=== PATIENT | female | born 1980 | race African-American/Black ===

== ENCOUNTER → 2017-08-11 | Outpatient (CLI) | payer OTHER ==
[2014-10-23 18:29] VITALS: BP 120/64
[~2017-08-11] MED LIST: IOHEXOL 240 MG/ML 50ML VIAL. ONE; IOHEXOL 300 MG/ML 75 ML VIAL. IV ONE
--- NOTE | 2017-08-11 09:44 | RAD ---
Examination: CT of the abdomen pelvis with IV contrast History: History of chronic right lower quadrant abdominal pain, nausea, vomiting Comparison: None available Technique: Axial CT images of the abdomen pelvis were performed with IV contrast. Coronal and sagittal reformats are performed PQRS Compliance Statement: One or more of the following individualized dose reduction techniques were utilized for this examination: 1. Automated exposure control 2. Adjustment of the mA and/or kV according to patient size 3. Use of iterative reconstruction technique Findings: The bibasal lungs are clear. No evidence of free air identified in the abdomen. Examination is somewhat limited due to delayed imaging after contrast administration. Grossly the visualized liver, spleen, adrenals grossly appears unremarkable. The gallbladder is mildly distended. The stomach is mildly distended. The visualized pancreas grossly appears unremarkable. The small bowel is nondilated. The appendix is normal. Feces and gas noted in the colon. There is a cystic structure identified in the left adnexa measuring 3.5 cm could be a left ovarian cyst or cystic lesion. Heterogeneous appearance of the uterus with the hypodensity identified abutting the endometrium measuring 3.5 cm.. The bilateral kidneys enhance symmetrically. The caliber of the aorta grossly appears unremarkable. Minimal degenerative changes lumbar spine. Impression: 1. No acute intra-abdominal findings. 2. Heterogeneous appearance of the uterus with hypodensity identified abutting the endometrium measuring 3.5 cm probably fibroids. Ultrasound pelvis can be considered for follow-up if this is a clinical concern. 3. A 3.5 cm cyst is identified in the left adnexa probably left ovarian cyst or cystic lesion. Ultrasound pelvis is recommended.
== END | disposition home or self-care (01) ==
LOC: CT 07:59
PROVIDERS: ATTEND Nurse Practitioner Family
DX: N83.8 Other noninflammatory disorders of ovary, fallopian tube and broad ligament (principal); K82.8 Other specified diseases of gallbladder; M47.896 Other spondylosis, lumbar region
CPT/HCPCS: 74177; Q9966; Q9967

== ENCOUNTER → 2017-09-09 | Outpatient (CLI) | payer OTHER ==
[2014-10-23 18:29] VITALS: BP 120/64
--- NOTE | 2017-09-09 16:33 | RAD ---
Pelvic ultrasound, 09/09/2017: History: Abdominal pain, abnormal CT study Transabdominal and transvaginal scans were obtained. The uterus is enlarged measuring 13 cm in length. It demonstrates a heterogeneous echo pattern. There is a 3.6 cm rounded, slightly hypoechoic, heterogeneous mass in the posterior aspect of the uterus. This distorts the central uterine echo complex, which measures approximately 1.1 cm in greatest AP dimension. This posterior uterine mass was present on the 02/05/2016 study at which time it measured approximately 5 cm. There is presumably represents a uterine fibroid. A 1.8 cm hypoechoic nodule is seen anteriorly in the uterus. Small nabothian cysts are noted in the cervical region. There is a 2.2 cm predominantly cystic lesion in the right ovary. There are low level internal echoes. This is probably a hemorrhagic cyst. The right ovary is otherwise unremarkable. The left ovary is within normal limits in size. The cystic structure seen in the left adnexa on the 08/11/2017 CT study is not visible sonographically. This may have been a functional cyst which has resolved. The adnexal regions are otherwise unremarkable. A small amount of free fluid is present in the pelvis. IMPRESSION: 1. Fibroid uterus with the largest fibroid (3.6 cm) in the posterior aspect of the uterus demonstrating an interval decrease in size since 02/05/2016. 2. Small right ovarian cyst containing debris, most likely a hemorrhagic cyst. 3. Small amount of free fluid in the pelvis.
--- NOTE | 2017-09-09 16:46 | RAD ---
Thyroid ultrasound, 09/09/2017: History: Hyperthyroidism The gland is generally enlarged with the right lobe measuring 6.4 x 2.4 x 2.4 cm while the left lobe measures 6.1 x 2.6 x 2.5 cm. The isthmus measures 0.8 cm AP dimension. The thyroid echo pattern is heterogeneous. The gland is hypervascular. There is a 6 mm smooth hyperechoic nodule present in the lower pole of the right lobe of the gland. It does not demonstrate suspicious features. There is a more complex 1.4 cm nodule present in the posterior aspect of the lower pole of the right lobe of the gland. It demonstrates hypoechoic and isoechoic components as well as a coarse calcification. No discrete nodule is seen in the left lobe of the gland. IMPRESSION: 1. 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 2. Two right thyroid nodules as noted above. The larger one is mildly suspicious due to the presence of internal calcification. Sonographic follow-up is suggested.
== END | disposition home or self-care (01) ==
LOC: US 13:48
DX: N83.202 Unspecified ovarian cyst, left side (principal); N83.201 Unspecified ovarian cyst, right side; E05.90 Thyrotoxicosis, unspecified without thyrotoxic crisis or storm; D25.9 Leiomyoma of uterus, unspecified
CPT/HCPCS: 76536; 76830; 76856

== ENCOUNTER → 2017-09-09 | Outpatient (CLI) | payer OTHER ==
[2014-10-23 18:29] VITALS: BP 120/64
--- NOTE | 2017-09-09 12:38 | RAD ---
2 views of the Chest 09/09/2017 2:00 AM Indication: SHORTNESS OF BREATH Comparison: Chest radiograph April 17, 2016 Findings: There is no focal consolidation or infiltrate identified. There is no effusion or pneumothorax. The cardiomediastinal silhouette and pulmonary vasculature are within normal limits. No osseous abnormality is identified. Impression: No evidence of acute cardiopulmonary process.
[2017-09-09 12:54] LABS: ALBUMIN 3.2 g/dL (3.4-5.0); ALBUMIN/GLOBULIN RATIO 0.9 (1.0-1.7); CREATININE 0.5 mg/dL (0.6-1.0); TOTAL BILIRUBIN 0.2 mg/dL (0.2-1.0); TOTAL PROTEIN 6.9 g/dL (6.4-8.2)
[2017-09-10 15:17] LABS: FREE T4 4.52 ng/dL (0.76-1.46)
[2017-09-10 15:48] LABS: THYROID STIM HORMONE (TSH) < 0.007 uIU/mL (0.358-3.740)
== END | disposition home or self-care (01) ==
LOC: PMG 11:42
PROVIDERS: ATTEND Nurse Practitioner Family
DX: R06.02 Shortness of breath (principal); R94.6 Abnormal results of thyroid function studies
CPT/HCPCS: 36415; 71046; 76536; 80053; 83880; 84439; 84443; 84481; 85379

== ENCOUNTER → 2017-09-10 | Outpatient (CLI) | payer OTHER ==
[2014-10-23 18:29] VITALS: BP 120/64
[2017-09-10] MEDS: IOHEXOL 300 MG/ML 75 ML VIAL. IV ONE (11:33)
--- NOTE | 2017-09-10 11:59 | RAD ---
INDICATION: Elevated d-dimer COMPARISON: Chest x-ray 1 day prior TECHNIQUE: Axial CT images obtained through the chest. Intravenous contrast was utilized. Three-dimensional images processed per protocol. FINDINGS: There are some limitation secondary to contrast bolus timing and patient motion. No evidence of pneumothorax. There are some minimal groundglass opacities within left greater than right lung. Portions of the thoracic aorta are obscured by motion. Ascending thoracic aorta measures approximately 38 mm and descending thoracic aorta approximately 2 cm. [place] shaped soft tissue density anterior mediastinum. Calcification at right lobe of thyroid. There is some irregularity of the inferior endplate of T5 with some sclerosis in the area. No embolus in main, right main or left main pulmonary artery. Peripheral evaluation is very limited secondary to patient motion and suboptimal contrast IMPRESSION: 1. No embolus in main pulmonary arteries. Peripheral evaluation is very limited secondary to motion. 2. Soft tissue density in the anterior mediastinum. Could be from causes such as residual thymus. 3. Mild groundglass opacities in left greater than right lung. Could be hypoventilatory changes or small airway inflammation. 4. Irregularity of the inferior endplate of T5. Could be from causes such at Schmorl's node unless the patient has a history of injury to this region. PQRS Compliance Statement: One or more of the following individualized dose reduction techniques were utilized for this examination: 1. Automated exposure control 2. Adjustment of the mA and/or kV according to patient size 3. Use of iterative reconstruction technique
== END | disposition home or self-care (01) ==
LOC: CT 11:07
DX: R79.1 Abnormal coagulation profile (principal); R91.8 Other nonspecific abnormal finding of lung field
CPT/HCPCS: 71275; Q9967

== ENCOUNTER → 2019-05-10 | Outpatient (CLI) | payer MEDICAID ==
[2014-10-23 18:29] VITALS: BP 120/64
--- NOTE | 2019-05-10 13:50 | RAD ---
DATE: 05/10/2019 EXAM: DIGITAL DIAGNOSTIC BILATERAL HISTORY: Swelling in left breast after tetanus shot. COMPARISON: 07/15/2016 This study was interpreted with the benefit of Computerized Aided Detection (CAD). Breast Density: HETERO The breast parenchyma is heterogenously dense, which could reduce sensitivity of mammography. Breast parenchyma level C. FINDINGS: 2-D CC and MLO views are provided. Right breast: There are no suspicious microcalcifications, masses or areas of architectural distortion. Left breast: There are no suspicious microcalcifications, masses or areas of architectural distortion. Bilateral mammograms compared to prior examinations and appears unchanged. IMPRESSION: Negative bilateral mammogram. Note that a normal mammogram does not preclude additional imaging if symptoms warrant. BI-RADS CATEGORY: 1 NEGATIVE RECOMMENDED FOLLOW-UP: 12M 12 MONTH FOLLOW-UP PQRS compliance statement: Patient information was entered into a reminder system with a target due date 05/10/2020 for the next mammogram. Mammography is a sensitive method for finding small breast cancers, but it does not detect them all and is not a substitute for careful clinical examination. A negative mammogram does not negate a clinically suspicious finding and should not result in delay in biopsying a clinically suspicious abnormality. "Our facility is accredited by the [employer] Mammography Program."
== END | disposition home or self-care (01) ==
LOC: MAMMO 12:44
PROVIDERS: ATTEND Physician Assistant
DX: R92.8 Other abnormal and inconclusive findings on diagnostic imaging of breast (principal); N63.0 Unspecified lump in unspecified breast
CPT/HCPCS: 77066

== ENCOUNTER 2019-08-19 12:51 | Emergency (ER) | payer MEDICAID ==
[~2019-08-19] VITALS: Ht 182.9 cm; Wt 111.6 kg
[2019-08-19 13:05] VITALS: BP 124/78
[2019-08-19] MEDS ORDERED: PROM118S9 PO (13:25)
[2019-08-19] MEDS ORDERED: FLUC150T PO (13:25)
[2019-08-19] MEDS ORDERED: AZIT250T6 PO (13:25)
--- NOTE | 2019-08-19 13:25 | PHYS DOC ---
Past History Past Medical History: Hypothyroid Past Surgical History: , Other Additional Past Surgical Histo: UMBILICAL HERNIA Smoking: Non-smoker Alcohol Use: Occasionally Drug Use: None Adult General Chief Complaint Chief Complaint: SORE THROAT HPI HPI Patient is a 89-year-old female presents with nasal congestion, sore throat, and cough. This is been going on for the past 3 days and getting worse over time. She had a fever of 101 last night. No significant improvement with NyQuil, last dose last night. No nausea or vomiting. No diarrhea. No dysuria or hematuria. Nothing really seems to make the symptoms better or worse. She has not been on any recent antibiotics. She just completed [employer] school and has been around numerous sick patients.[] Review of Systems Review of Systems Constitutional: See history of present illness[] Eyes: Denies change in visual acuity, redness, or eye pain [] HENT: See history of present illness[] Respiratory: Denies hemoptysis or shortness of breath [] Cardiovascular: No chest pain or palpitations[] GI: Denies abdominal pain, nausea, vomiting, bloody stools or diarrhea [] : Denies dysuria or hematuria [] Musculoskeletal: Denies back pain or joint pain [] Integument: Denies rash or skin lesions [] Neurologic: Denies headache, focal weakness or sensory changes [] Endocrine: Denies polyuria or polydipsia [] All other systems were reviewed and found to be within normal limits, except as documented in this note. Allergies Allergies Allergies Coded Allergies Type Severity Reaction Last Updated Verified Penicillins Allergy Unknown 08/11/17 Yes morphine Allergy Unknown 08/11/17 Yes Physical Exam Physical Exam Constitutional: Well developed, well nourished, no acute distress, non-toxic appearance. [] HENT: Normocephalic, atraumatic, bilateral external ears normal, oropharynx moist, no oral exudates, nose with mild clear rhinorrhea. Posterior pharyngeal streaking is present. [] Eyes: PERRLA, EOMI, conjunctiva normal, no discharge. [] Neck: Normal range of motion, no tenderness, supple, no stridor. [] Cardiovascular:Heart rate regular rhythm, no murmur [] Lungs & Thorax: Bilateral breath sounds clear to auscultation, no increased work of breathing [] Abdomen: Bowel sounds normal, soft, no tenderness, no masses, no pulsatile masses. [] Skin: Warm, dry, no erythema, no rash. [] Back: No tenderness, no CVA tenderness. [] Extremities: No tenderness, no cyanosis, no clubbing, ROM intact, no edema. [] Neurologic: Alert and oriented X 3, normal motor function, normal sensory function, no focal deficits noted. [] Psychologic: Affect normal, judgement normal, mood normal. [] Current Patient Data Vital Signs Vital Signs Date Time Temp Pulse Resp B/P (MAP) Pulse Ox O2 Delivery O2 Flow Rate FiO2 08/19/19 13:05 98.3 92 20 99 Room Air EKG EKG [] Radiology/Procedures Radiology/Procedures [] Course & Med Decision Making Course & Med Decision Making Pertinent Labs and Imaging studies reviewed. (See chart for details) ED course: Patient arrived, was placed in bed, and tolerated exam well. Discussed options with patient. Findings and plan were discussed with patient. She was discharged in improved condition. All questions were answered. Medical decision making: Patient appears to have an upper respiratory infection. We'll start with symptomatic treatment. If this is not improving in 2 days she will have perception for antibiotics, that we'll cover both throat as well as lungs given her penicillin allergy. She also notes that she does get yeast infections when on antibiotics. Writing for the when necessary Diflucan. No evidence of sepsis, no airway compromise. No hypoxia.[] Dragon Disclaimer Dragon Disclaimer This electronic medical record was generated, in whole or in part, using a voice recognition dictation system. Departure Departure: Impression: Primary Impression: Upper respiratory infection Disposition: 01 HOME, SELF-CARE Condition: IMPROVED Referrals: NICO GARCIA (PCP) Follow-up in 2 days Patient Instructions: Upper Respiratory Infection, Adult Additional Instructions: Drink plenty of fluids. Follow-up with your regular doctor in 2 days. Use the promethazine DM to help with cough and congestion. If no improvement in 2 days with that then take the azithromycin as prescribed. Use the Diflucan if necessary. Return to the ER if difficulty breathing or any other concerns. Scripts Fluconazole (DIFLUCAN) 150 Mg Tablet 1 TAB PO ONCE for candidiasis, #1 TAB Prov: SHANITA MULLEN DO 08/19/19 Azithromycin (AZITHROMYCIN TABLET) 250 Mg Tablet 1 PKG PO UD for bronchitis for 5 Days, #6 TAB 0 Refills 2 the first day followed by 1 for days 2-5 Prov: SHANITA MULLEN DO 08/19/19 D-Methorphan Hb/Prometh Hcl (PROMETHAZINE-DM SYRUP) 118 Ml Syrup 5 ML PO PRN Q4HRS for CONGESTION, #120 ML Prov: SHANITA MULLEN DO 08/19/19 Problem Qualifiers Primary Impression: Upper respiratory infection URI type: unspecified URI Qualified Codes: J06.9 - Acute upper respiratory infection, unspecified SHANITA MULLEN DO Aug 19, 2019 13:25
== END 2019-08-19 13:30 | disposition home or self-care (01) ==
LOC: ER 12:51
DX: J06.9 Acute upper respiratory infection, unspecified (principal); E03.9 Hypothyroidism, unspecified; Z88.0 Allergy status to penicillin; Z88.5 Allergy status to narcotic agent
CPT/HCPCS: 99283

== ENCOUNTER → 2019-10-02 | Outpatient (CLI) | payer MEDICAID ==
[~2019-10-02] MED LIST changes: +AZIT250T6 PO; +FLUC150T PO; -IOHEXOL 240 MG/ML 50ML VIAL. ONE; -IOHEXOL 300 MG/ML 75 ML VIAL. IV ONE; +PROM118S9 PO
--- NOTE | 2019-10-02 09:09 | RAD ---
EXAM: Pelvis and left hip, 3 views. HISTORY: Pain. Popping. COMPARISON: None. FINDINGS: A frontal view the pelvis and frontal and frog-leg views of the left hip are obtained. There is no fracture, dislocation or subluxation. IMPRESSION: No acute osseous finding. Electronically signed by: Trupti Garcia MD (10/02/2019 9:06 AM) [facility] [place]
== END | disposition home or self-care (01) ==
LOC: PMG 08:39
PROVIDERS: ATTEND Physician Assistant Medical
DX: M25.552 Pain in left hip (principal)
CPT/HCPCS: 73502

== ENCOUNTER → 2020-06-28 | Outpatient (CLI) | payer MEDICAID ==
[~2020-06-28] MED LIST changes: +PROM118S10 PO; -PROM118S9 PO
--- NOTE | 2020-07-01 10:02 | RAD ---
BILATERAL SCREENING MAMMOGRAM History: Routine screening. Comparison: 07/15/2016 and 05/10/2019. Technique: Routine bilateral digital mammogram views were obtained. Findings: Breast Tissue Density C : The breasts are heterogeneously dense, which may obscure small masses. There are no dominant masses, suspicious microcalcifications, or architectural distortion. IMPRESSION: No mammographic evidence of malignancy. Recommend routine screening. BI-RADS category 1: Negative. The images were reviewed with computer aided detection. Patient information is entered into the reminder system with a target due date for the next screening mammogram. Mammography is the most sensitive method for finding small breast cancers, but it does not detect them all and is not a substitute for careful clinical examination. A negative mammogram does not negate a clinically suspicious finding and should not result in delay in biopsying a clinically suspicious abnormality. "Our facility is accredited by the [employer] Mammography Program." Electronically signed by: Roberto Carlos Kebede MD (07/01/2020 9:59 AM) [id number]
== END ==
LOC: MAMMO 14:46
PROVIDERS: ATTEND Family Medicine
DX: Z12.31 Encounter for screening mammogram for malignant neoplasm of breast (principal)
CPT/HCPCS: 77067

== ENCOUNTER 2020-11-06 19:01 | Emergency (ER) | payer MEDICAID, OTHER ==
[~2020-11-06] VITALS: Ht 182.9 cm; Wt 100.0 kg
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
[2020-11-06] MEDS ORDERED: IBUPROFEN 600 MG TABLET. PO ONE (19:30)
[2020-11-06] MEDS ORDERED: CYCL-331 PO (19:56)
[2020-11-06] MEDS ORDERED: IBUP600T16 PO (19:56)
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
== END 2020-11-06 20:10 | disposition home or self-care (01) ==
LOC: ER 19:01
DX: S16.1XXA Strain of muscle, fascia and tendon at neck level, initial encounter (principal); S29.012A Strain of muscle and tendon of back wall of thorax, initial encounter; E03.9 Hypothyroidism, unspecified; Z98.890 Other specified postprocedural states; V98.8XXA Other specified transport accidents, initial encounter; Y93.89 Activity, other specified; Y92.413 State road as the place of occurrence of the external cause; Y99.8 Other external cause status
CPT/HCPCS: 72125; 72128; 99285

== ENCOUNTER → 2021-02-28 | Outpatient (CLI) | payer MEDICAID ==
[2020-11-06 19:14] VITALS: BP 148/58
[~2021-02-28] MED LIST changes: +CYCL-331 PO; +IBUP600T16 PO
--- NOTE | 2021-02-28 14:52 | RAD ---
EXAM: XR LUMBAR SPINE 2-3V 02/28/2021 1:17 PM CLINICAL INDICATION: Back pain since November, COMPARISON: None TECHNIQUE: 3 views of the lumbar spine FINDINGS: There 5 nonrib-bearing lumbar vertebral bodies. No acute fracture. Alignment is normal. No significant disc space narrowing. There are tiny anterior osteophytes in the upper lumbar spine. The facet joints are normal. IMPRESSION: No acute osseous abnormality. Minimal degenerative changes. Electronically signed by: Yana Barba MD (02/28/2021 2:50 PM) [id number]
== END ==
LOC: RAD 13:01
PROVIDERS: ATTEND Family Medicine
DX: M47.817 Spondylosis without myelopathy or radiculopathy, lumbosacral region (principal); M25.78 Osteophyte, vertebrae
CPT/HCPCS: 72100

== ENCOUNTER 2021-05-17 10:21 | Emergency (ER) | payer MEDICAID ==
[~2021-05-17] VITALS: Ht 182.9 cm; Wt 100.0 kg
[2021-05-17 10:32] VITALS: BP 120/71
[2021-05-17 11:00] LABS: BASO # 0.1 x10^3/uL (0.0-0.2); BASO % 3 % (0-3); EOS % 1 % (0-3); HEMOGLOBIN 10.2 g/dL (12.0-15.5); LYMPH # 1.2 x10^3/uL (1.0-4.8); LYMPH % 24 % (24-48); MEAN CORPUSCULAR HEMOGLOBIN 28 pg (25-35); MEAN CORPUSCULAR HGB CONC 33 g/dL (31-37); MEAN CORPUSCULAR VOLUME 87 fL (79-100); MONO # 0.5 x10^3/uL (0.0-1.1); MONO % 9 % (0-9); NEUT # 3.2 x10^3uL (1.8-7.7); NEUT % 64 % (31-73); PLATELET COUNT 249 x10^3/uL (140-400); RED BLOOD COUNT 3.58 x10^6/uL (3.50-5.40); RED CELL DISTRIBUTION WIDTH 18.8 % (11.5-14.5)
[2021-05-17] MEDS ORDERED: IV NORMAL SALINE 1,000ML 1,000 ML IV SCH (11:00)
[2021-05-17 11:03] LABS: CALCIUM 8.1 mg/dL (8.5-10.1); CREATININE 0.8 mg/dL (0.6-1.0); GFR 95.6; POTASSIUM 3.6 mmol/L (3.5-5.1)
[2021-05-17 11:15] LABS: ALBUMIN 3.8 g/dL (3.4-5.0); ALBUMIN/GLOBULIN RATIO 1.2 (1.0-1.7); TOTAL BILIRUBIN 0.6 mg/dL (0.2-1.0)
--- NOTE | 2021-05-17 11:35 | EKG ---
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
--- NOTE | 2021-05-17 12:32 | PHYS DOC ---
Past History Past Medical History: Hypothyroid Additional Past Medical Histor: brain aneursym Past Surgical History: , Other Additional Past Surgical Histo: UMBILICAL HERNIA Smoking: Non-smoker Alcohol Use: Occasionally Drug Use: None General Adult EDM: Chief Complaint: CHEST PAIN HPI: HPI: Patient is a 41-year-old female presents with chest pain. Patient states that pain started about 10 AM this morning after leaving her PCP. "My doctor told me this morning that I had an aneurysm and I think that is causing me to have chest pressure". "I feel like I might be having an anxiety attack". Patient denies radiation of pain. Denies nausea/vomiting., Shortness of breath. Patient denies taking anything prior to arrival. History of hypothyroid. Review of Systems: Review of Systems: Constitutional: Denies fever or chills Eyes: Denies change in visual acuity HENT: Denies nasal congestion or sore throat Respiratory: Denies cough or shortness of breath Cardiovascular: Reports chest pressure GI: Denies abdominal pain, nausea, vomiting, bloody stools or diarrhea : Denies dysuria Musculoskeletal: Denies back pain or joint pain Integument: Denies rash Neurologic: Denies headache, focal weakness or sensory changes Endocrine: Denies polyuria or polydipsia Lymphatic: Denies swollen glands Psychiatric: Denies depression or anxiety Current Medications: Current Meds: Current Medications Medications (Trade) Dose Ordered Sig/Yoav Start Time Stop Time Status Last Admin Dose Admin Lorazepam (Ativan Inj) 1 mg 1X ONCE 05/17/21 12:15 05/17/21 12:16 DC Sodium Chloride 1,000 ml @ 1,000 mls/hr Q1H 05/17/21 11:00 05/17/21 11:59 DC Allergies: Allergies: Allergies Coded Allergies Type Severity Reaction Last Updated Verified Penicillins Allergy Unknown 08/11/17 Yes morphine Allergy Unknown 08/11/17 Yes Physical Exam: PE: Constitutional: Well developed, well nourished, no acute distress, non-toxic appearance. [] HENT: Normocephalic, atraumatic, bilateral external ears normal, oropharynx moist, no oral exudates, nose normal. [] Eyes: PERRLA, EOMI, conjunctiva normal, no discharge. [] Neck: Normal range of motion, no tenderness, supple, no stridor. [] Cardiovascular:Heart rate regular rhythm, no murmur [] Lungs & Thorax: Bilateral breath sounds clear to auscultation [] Abdomen: Bowel sounds normal, soft, no tenderness, no masses, no pulsatile masses. [] Skin: Warm, dry, no erythema, no rash. [] Back: No tenderness, no CVA tenderness. [] Extremities: No tenderness, no cyanosis, no clubbing, ROM intact, no edema. [] Neurologic: Alert and oriented X 3, normal motor function, normal sensory function, no focal deficits noted. [] Psychologic: Affect normal, judgement normal, mood normal. [] Current Patient Data: Labs: Laboratory Tests Test 05/17/21 10:43 05/17/21 11:58 White Blood Count 5.0 x10^3/uL (4.0-11.0) Red Blood Count 3.58 x10^6/uL (3.50-5.40) Hemoglobin 10.2 g/dL (12.0-15.5) L Hematocrit 31.0 % (36.0-47.0) L Mean Corpuscular Volume 87 fL (79-100) Mean Corpuscular Hemoglobin 28 pg (25-35) Mean Corpuscular Hemoglobin Concent 33 g/dL (31-37) Red Cell Distribution Width 18.8 % (11.5-14.5) H Platelet Count 249 x10^3/uL (140-400) Neutrophils (%) (Auto) 64 % (31-73) Lymphocytes (%) (Auto) 24 % (24-48) Monocytes (%) (Auto) 9 % (0-9) Eosinophils (%) (Auto) 1 % (0-3) Basophils (%) (Auto) 3 % (0-3) Neutrophils # (Auto) 3.2 x10^3uL (1.8-7.7) Lymphocytes # (Auto) 1.2 x10^3/uL (1.0-4.8) Monocytes # (Auto) 0.5 x10^3/uL (0.0-1.1) Eosinophils # (Auto) 0.0 x10^3/uL (0.0-0.7) Basophils # (Auto) 0.1 x10^3/uL (0.0-0.2) Sodium Level 136 mmol/L (136-145) Potassium Level 3.6 mmol/L (3.5-5.1) Chloride Level 99 mmol/L (98-107) Carbon Dioxide Level 24 mmol/L (21-32) Anion Gap 13 (6-14) Blood Urea Nitrogen 10 mg/dL (7-20) Creatinine 0.8 mg/dL (0.6-1.0) Estimated GFR (Cockcroft-Gault) 95.6 BUN/Creatinine Ratio 13 (6-20) Glucose Level 87 mg/dL (70-99) Calcium Level 8.1 mg/dL (8.5-10.1) L Total Bilirubin 0.6 mg/dL (0.2-1.0) Aspartate Amino Transferase (AST) 31 U/L (15-37) Alanine Aminotransferase (ALT) 23 U/L (14-59) Alkaline Phosphatase 65 U/L (46-116) Troponin I Quantitative < 0.017 ng/mL (0-0.055) CQ-Kcj-X-Type Natriuretic Peptide 123 pg/mL (0-124) Total Protein 7.0 g/dL (6.4-8.2) Albumin 3.8 g/dL (3.4-5.0) Albumin/Globulin Ratio 1.2 (1.0-1.7) POC Urine HCG, Qualitative hcg negative (Negative) Vital Signs: Vital Signs Date Time Temp Pulse Resp B/P (MAP) Pulse Ox O2 Delivery O2 Flow Rate FiO2 05/17/21 10:32 71 20 120/71 (87) 100 EKG: EKG: Sinus rhythm. Heart rate [address] Segura. [] Radiology/Procedures: Radiology/Procedures: []XR CHEST 1V CLINICAL INDICATIONS: Chest pain: COMPARISON: September 09, 2017. Findings: No acute lung infiltrate or pleural effusion or pulmonary edema or lung mass or pneumothorax is seen. The heart size, pulmonary vasculature, mediastinum and both filiberto are unremarkable. IMPRESSION: No acute radiographic abnormality is seen. Electronically signed by: Wilfrido Wei MD (05/17/2021 12:34 PM) [id number] Heart Score: C/O Chest Pain: Yes HEART Score for Chest Pain: HEART Score for Chest Pain Response (Comments) Value History Slighlty/Non-Suspicious 0 ECG Normal 0 Age < 45 0 Risk Factors No Risk Factors 0 Troponin < Normal Limit 0 Total 0 Risk Factors: Risk Factors: DM, Current or recent (<one month) smoker, HTN, HLP, family history of CAD, obesity. Risk Scores: Score 0 - 3: 2.5% MACE over next 6 weeks - Discharge Home Score 4 - 6: 20.3% MACE over next 6 weeks - Admit for Clinical Observation Score 7 - 10: 72.7% MACE over next 6 weeks - Early Invasive Strategies Course & Med Decision Making: Course & Med Decision Making Pertinent Labs and Imaging studies reviewed. (See chart for details) [] 41-year-old female presents with chest pressure that started at 10 AM this morning. Patient states that she was told she had a brain aneurysm and immediately started having pressure in her chest. Patient most likely is experiencing anxiety from recent diagnosis. Offered to give patient 1 mg of Ativan to help with anxiety, but patient declined. Patient is also refusing fluids. Chest x-ray is unremarkable. All labs unremarkable. Troponin is negative. Dis cussed results with patient. Explained patient that she would need to stay to get a repeat troponin level. Repeat troponin is unchanged and nonconcerning. Discussed all results with patient. Patient most likely was having anxiety from recent doctor appointment. Patient agrees with the assessment. Advised the patient to follow-up with PCP next week. Patient given strict return precautions. Patient is hemodynamically stable upon disposition. [employer] Disclaimer: Akosua Disclaimer: This electronic medical record was generated, in whole or in part, using a voice recognition dictation system. Departure Departure: Impression: Primary Impression: Anxiety Additional Impression: Chest pressure Disposition: HOME / SELF CARE / HOMELESS Condition: STABLE Referrals: LEIGHTON CHAO MD (PCP) Patient Instructions: Anxiety and Panic Attacks, [id number] Additional Instructions: You were seen in the emergency room for anxiety and chest pressure. All of your labs were unremarkable. I think you most likely were having anxiety due to recent doctor appointment. Please follow-up with your PCP next week. Return to the emergency room if you have worsening symptoms or concerns EMERGENCY DEPARTMENT GENERAL DISCHARGE INSTRUCTIONS Thank you for coming to [facility] ([facility]) today and trusting us with you care. We trust that you had a positivie experience in our Emergency Department. If you wish to speak to the department management, you may call the director at [phone]. YOUR FOLLOW UP INSTRUCTIONS ARE FOLLOWS: 1. Do you have a private Doctor? If you do not have a private doctor, please ask for a resource list of physicians or clinics that may be able to assist you with follow up care. 2. The Emergency Physician has interpreted your x-rays. The X-Ray specialist will also review them. If there is a change in the findings, you will be notified in 48 hours when at all possible. 3. A lab test or culture has been done, your results will be reviewed and you will be notified if you need a change in treatment. ADDITIONAL INSTRUCTIONS AND INFORMATION: 1. Your care today has been supervised by a physician who is specially trained in emergency care. Many problems require more than one evaluation for a complete diagnosis and treatment. We recommend that you schedule your follow up appointment as recommended to ensure complete treatment of you illness or injury. If you are unable to obtain follow up care and continue to have a problem, or if your condition worsens, we recommend that you return to the ED. 2. We are not able to safely determine your condition over the phone nor are we able to give sound medical advice over the phone. For these safety reasons, if you call for medical advice we will ask you to come to the ED for further evaluation. 3. If you have any questions regarding these discharge instructions please call the ED at [phone]. SAFETY INFORMATION: In the interest of safety, wellness, and injury prevention; we encourage you to wear your sealbelt, if you smoke; quite smoking, and we encourage family to use a protective helmet for bicycling and other sporting events that present an increased risk for head injury. IF YOUR SYMPTOMS WORSEN OR NEW SYMPTOMS DEVELOP, OR YOU HAVE CONCERNS ABOUT YOUR CONDITION; OR IF YOUR CONDITION WORSENS WHILE YOU ARE WAITING FOR YOUR FOLLOW UP APPOINTMENT; EITHER CONTACT YOUR PRIMARY CARE DOCTOR, THE PHYSICIAN WHOSE NAME AND NUMBER YOU WERE GIVEN, OR RETURN TO THE ED IMMEDIATELY. DEVYN SUÁREZ APRN May 17, 2021 12:32
--- NOTE | 2021-05-17 12:36 | RAD ---
XR CHEST 1V CLINICAL INDICATIONS: Chest pain: COMPARISON: September 09, 2017. Findings: No acute lung infiltrate or pleural effusion or pulmonary edema or lung mass or pneumothora x is seen. The heart size, pulmonary vasculature, mediastinum and both filiberto are unremarkable. IMPRESSION: No acute radiographic abnormality is seen. Electronically signed by: Wilfrido Wei MD (05/17/2021 12:34 PM) [id number]
[2021-05-17 13:05] LABS: BACTERIA,URINE FEW /HPF (0-FEW); BILIRUBIN,URINE NEG (NEG); CLARITY,URINE HAZY; COLOR,URINE YELLOW; GLUCOSE,URINE NEG (NEG); NITRITE,URINE NEG (NEG); RBC,URINE RARE /HPF (0-2); UROBILINOGEN,URINE 0.2 mg/dL (0.2 mg/dL); WBC,URINE OCC /HPF (0-4)
[2021-05-17 13:06] LABS: SQUAMOUS EPITHELIAL CELL,UR FEW /LPF
--- NOTE | 2021-05-17 17:21 | EKG ---
[address] [address] Test Date: 2021-05-17 Test Time: 15:53:07 Pat Name: ROSE GUTIERREZ Department: Room: Gender: F Lay Out Carpenter: NINA : 1980 Requested By: DEVYN SUÁREZ Order Number: [id number] Reading MD: Dick Matthews Measurements Intervals [place] Rate: 66 P: 90 [place]: 182 QRS: 66 QRSD: 86 T: 47 QT: 390 QTc: 411 Interpretive Statements SINUS RHYTHM NORMAL ECG RI6.02 Compared to ECG 05/17/2021 10:35:15 No significant changes Electronically Signed On 05-20-2021 13:29:24 CDT by Dick Matthews
== END 2021-05-17 16:20 | disposition home or self-care (01) ==
LOC: ER 10:21
DX: F41.9 Anxiety disorder, unspecified (principal); R07.89 Other chest pain; E03.9 Hypothyroidism, unspecified; Z88.0 Allergy status to penicillin; Z88.5 Allergy status to narcotic agent
CPT/HCPCS: 36415; 71045; 80053; 81001; 81025; 83880; 84484; 85025; 87086; 93005; 99285

== ENCOUNTER 2021-06-15 09:34 | Emergency (ER) | payer MEDICAID ==
[~2021-06-15] VITALS: Ht 182.9 cm; Wt 102.2 kg
--- NOTE | 2021-06-15 10:39 | EKG ---
[address] [address] Test Date: 2021-06-15 Test Time: 09:43:05 Pat Name: ROSE GUTIERREZ Department: Room: Gender: F Senior Report Developer: YANET : 1980 Requested By: JENNIFER WINTERS Order Number: [id number] Reading MD: Dick Matthews Measurements Intervals [place] Rate: 67 P: 90 [place]: 176 QRS: 56 QRSD: 80 T: 28 QT: 366 QTc: 389 Interpretive Statements SINUS RHYTHM Electronically Signed On 06-15-2021 16:35:57 CDT by Dick Matthews
[2021-06-15 11:04] LABS: HEMATOCRIT 29.6 % (36.0-47.0); HEMOGLOBIN 9.4 g/dL (12.0-15.5); MEAN CORPUSCULAR HEMOGLOBIN 28 pg (25-35); MEAN CORPUSCULAR HGB CONC 32 g/dL (31-37); MEAN CORPUSCULAR VOLUME 90 fL (79-100); PLATELET COUNT 232 x10^3/uL (140-400); RED BLOOD COUNT 3.29 x10^6/uL (3.50-5.40); RED CELL DISTRIBUTION WIDTH 18.4 % (11.5-14.5); WHITE BLOOD COUNT 4.2 x10^3/uL (4.0-11.0)
[2021-06-15 11:05] LABS: BASO # 0.1 x10^3/uL (0.0-0.2); BASO % 1 % (0-3); EOS # 0.1 x10^3/uL (0.0-0.7); EOS % 2 % (0-3); LYMPH # 1.5 x10^3/uL (1.0-4.8); LYMPH % 34 % (24-48); MONO # 0.5 x10^3/uL (0.0-1.1); MONO % 11 % (0-9); NEUT # 2.2 x10^3uL (1.8-7.7); NEUT % 52 % (31-73)
[2021-06-15 11:09] LABS: CALCIUM 8.6 mg/dL (8.5-10.1); CREATININE 0.7 mg/dL (0.6-1.0); GFR 111.6; POTASSIUM 3.6 mmol/L (3.5-5.1)
[2021-06-15 11:10] LABS: ALBUMIN 3.5 g/dL (3.4-5.0); ALBUMIN/GLOBULIN RATIO 1.1 (1.0-1.7); MAGNESIUM 1.8 mg/dL (1.8-2.4); TOTAL BILIRUBIN 0.3 mg/dL (0.2-1.0); TOTAL PROTEIN 6.8 g/dL (6.4-8.2)
[2021-06-15 11:37] LABS: BARBITURATES NEG (NEG); BENZODIAZEPINES NEG (NEG); BILIRUBIN,URINE NEG (NEG); CANNABINOIDS NEG (NEG); CLARITY,URINE HAZY; COCAINE NEG (NEG); COLOR,URINE YELLOW; GLUCOSE,URINE NEG (NEG); METHADONE NEG (NEG); NITRITE,URINE NEG (NEG); OPIATES NEG (NEG); PHENCYCLIDINE NEG (NEG); UROBILINOGEN,URINE 0.2 mg/dL (0.2 mg/dL)
[2021-06-15 11:38] LABS: BACTERIA,URINE FEW /HPF (0-FEW); SQUAMOUS EPITHELIAL CELL,UR MANY /LPF
--- NOTE | 2021-06-15 11:39 | RAD ---
EXAM: Chest, single view. HISTORY: Chest pain. COMPARISON: 05/17/2021 FINDINGS: A frontal view of the chest is obtained. There is no infiltrate, pleural effusion or pneumo thorax. There is slight increased opacification of the lower thorax due to asymmetric overlying soft tissue. There is a stable cardiac silhouette. There is a hypoplastic or partially resected left first rib. IMPRESSION: No acute pulmonary finding. Electronically signed by: Trupti Garcia MD (06/15/2021 11:36 AM) [id number]
[2021-06-15 11:46] LABS: AMPHETAMINE/METHAMPHETAMINE NEG (NEG)
[2021-06-15] MEDS ORDERED: HYDR25TA PO (15:03)
--- NOTE | 2021-06-15 15:04 | PHYS DOC ---
Past History Past Medical History: Hypothyroid Additional Past Medical Histor: brain aneursym Past Surgical History: , Tubal ligation, Other Additional Past Surgical Histo: UMBILICAL HERNIA Smoking: Non-smoker Alcohol Use: None Drug Use: None General Adult EDM: Chief Complaint: CHEST PAIN HPI: HPI: 41-year-old female past medical history of hypothyroidism (presenting with palpitations) and chronic back pain presents to the ED with complaints of " I was asleep, I have all kinds of stuff going on right now." Patient starts crying and reports midsternal chest tightness, nonradiating and constant for the past 4 days stating that she is sweating when she sleeps. Reports she feels like her breasts are heavy, similar sensation when she was breast-feeding. Does report associated racing thoughts and no sleep for the past 24 hours. Reports normal bowel movement this morning, brown in color. Is asking for urinalysis stating she was diagnosed with E. coli 3 weeks ago and completed Macrobid- complains of dysuria and increased frequency. Reports irregular menses. Had a period 1 week ago and started having vaginal bleeding yesterday. Stressors inc lude her 16-year-old daughter coming out and concern her partner of four years, cheated on her. Is requesting a Chlamydia and gonorrhea test. Has a history of a cardiac work-up "years ago" due to her hyperthyroidism but no history of a stress test. 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 No personal or family history of AAA, AAD, CTD (ehlos danlos or marfans), cardiac arrhythmias (need for AICD), or clotting disorders. Reports her biological sister at 50 years of age 2/2 hypoxia and a suspected heart attack. Patient denies any alcohol or cocaine abuse. Review of Systems: Review of Systems: Constitutional: Denies fever or chills Eyes: Denies change in visual acuity HENT: Denies nasal congestion or sore throat Respiratory: Denies cough or shortness of breath or hemoptysis Cardiovascular: Denies syncope or edema GI: Denies nausea, vomiting, bloody stools or diarrhea : Denies flank pain or flulike symptoms Musculoskeletal: Denies back pain or joint pain Integument: Denies rash or desquamation Neurologic: Denies headache, focal weakness or sensory changes Endocrine: Denies polyuria or polydipsia Lymphatic: Denies swollen glands Psychiatric: Denies depression or anxiety Allergies: Allergies: Allergies Coded Allergies Type Severity Reaction Last Updated Verified Penicillins Allergy Unknown 08/11/17 Yes morphine Allergy Unknown 08/11/17 Yes Physical Exam: PE: Constitutional: Well developed, well nourished, no acute distress, non-toxic appearance, patient was sleeping comfortably when I entered her room HENT: Normocephalic, atraumatic, moist mucous membranes Eyes: EOMI, conjunctiva normal, no discharge. Neck: Normal range of motion, supple, Cardiovascular: S1/2 present, regular rhythm Lungs & Thorax: Speaking in full sentences, bilateral equal chest rise, no tachypnea or increased work of breathing Abdomen: soft, no tenderness, no rigidity or guarding Skin: Warm, dry, no erythema, no rash. [] Extremities: No tenderness, no cyanosis, no lower extremity edema Neurologic: Alert and oriented X 3, normal motor function, normal sensory function, no focal deficits noted. [] Psychologic: crying on exam, appears very overwhelmed Current Patient Data: Labs: Laboratory Tests Test 06/15/21 09:56 06/15/21 10:03 06/15/21 10:12 06/15/21 11:12 Urine Collection Type Unknown Urine Color Yellow Urine Clarity Hazy Urine pH 6.0 Urine Specific [place] 1.010 Urine Protein Neg (NEG-TRACE) Urine Glucose (UA) Neg mg/dL (NEG) Urine Ketones (Stick) Neg mg/dL (NEG) Urine Blood Large (NEG) Urine Nitrite Neg (NEG) Urine Bilirubin Neg (NEG) Urine Urobilinogen Dipstick 0.2 mg/dL (0.2 mg/dL) Urine Leukocyte Esterase Trace (NEG) Urine RBC 3-5 /HPF (0-2) Urine WBC 5-10 /HPF (0-4) Urine Squamous Epithelial Cells Many /LPF Urine Transitional Epithelial Cells Few /LPF Urine Bacteria Few /HPF (0-FEW) Urine Opiates Screen Neg (NEG) Urine Methadone Screen Neg (NEG) Urine Barbiturates Neg (NEG) Urine Phencyclidine Screen Neg (NEG) Urine Amphetamine/Methamphetamine Neg (NEG) Urine Benzodiazepines Screen Neg (NEG) Urine Cocaine Screen Neg (NEG) Urine Cannabinoids Screen Neg (NEG) Urine Ethyl Alcohol Neg (NEG) White Blood Count 4.2 x10^3/uL (4.0-11.0) Red Blood Count 3.29 x10^6/uL (3.50-5.40) L Hemoglobin 9.4 g/dL (12.0-15.5) L Hematocrit 29.6 % (36.0-47.0) L Mean Corpuscular Volume 90 fL (79-100) Mean Corpuscular Hemoglobin 28 pg (25-35) Mean Corpuscular Hemoglobin Concent 32 g/dL (31-37) Red Cell Distribution Width 18.4 % (11.5-14.5) H Platelet Count 232 x10^3/uL (140-400) Neutrophils (%) (Auto) 52 % (31-73) Lymphocytes (%) (Auto) 34 % (24-48) Monocytes (%) (Auto) 11 % (0-9) H Eosinophils (%) (Auto) 2 % (0-3) Basophils (%) (Auto) 1 % (0-3) Neutrophils # (Auto) 2.2 x10^3uL (1.8-7.7) Lymphocytes # (Auto) 1.5 x10^3/uL (1.0-4.8) Monocytes # (Auto) 0.5 x10^3/uL (0.0-1.1) Eosinophils # (Auto) 0.1 x10^3/uL (0.0-0.7) Basophils # (Auto) 0.1 x10^3/uL (0.0-0.2) Sodium Level 137 mmol/L (136-145) Potassium Level 3.6 mmol/L (3.5-5.1) Chloride Level 103 mmol/L (98-107) Carbon Dioxide Level 25 mmol/L (21-32) Anion Gap 9 (6-14) Blood Urea Nitrogen 9 mg/dL (7-20) Creatinine 0.7 mg/dL (0.6-1.0) Estimated GFR (Cockcroft-Gault) 111.6 BUN/Creatinine Ratio 13 (6-20) Glucose Level 98 mg/dL (70-99) Calcium Level 8.6 mg/dL (8.5-10.1) Magnesium Level 1.8 mg/dL (1.8-2.4) Total Bilirubin 0.3 mg/dL (0.2-1.0) Aspartate Amino Transferase (AST) 35 U/L (15-37) Alanine Aminotransferase (ALT) 32 U/L (14-59) Alkaline Phosphatase 57 U/L (46-116) Troponin I Quantitative < 0.017 ng/mL (0-0.055) Total Protein 6.8 g/dL (6.4-8.2) Albumin 3.5 g/dL (3.4-5.0) Albumin/Globulin Ratio 1.1 (1.0-1.7) Lipase 132 U/L (73-393) POC Urine HCG, Qualitative hcg negative (Negative) D-Dimer (Laurie) 0.34 mg/L (0.00-0.50) Test 06/15/21 13:00 Troponin I Quantitative < 0.017 ng/mL (0-0.055) Vital Signs: Vital Signs Date Time Temp Pulse Resp B/P (MAP) Pulse Ox O2 Delivery O2 Flow Rate FiO2 06/15/21 13:15 67 18 144/79 (100) 100 Room Air 06/15/21 09:44 97.8 EKG: EKG: Sinus rhythm 69 bpm, no axis deviation, normal intervals, no T wave inversion, no ST elevation or ST depression Radiology/Procedures: Radiology/Procedures: []IMAGING REPORT Signed PATIENT: ROSE GUTIERREZ ACCOUNT: [id number] : 1980 LOCATION: ER AGE: 41 SEX: F EXAM STATUS: REG ER ORD. PHYSICIAN: JENNIFER WINTERS DO REASON: cp PROCEDURE: PORTABLE CHEST 1V EXAM: Chest, single view. HISTORY: Chest pain. COMPARISON: 05/17/2021 FINDINGS: A frontal view of the chest is obtained. There is no infiltrate, pleural effusion or pneumothorax. There is slight increased opacification of the lower thorax due to asymmetric overlying soft tissue. There is a stable cardiac silhouette. There is a hypoplastic or partially resected left first rib. IMPRESSION: No acute pulmonary finding. Electronically signed by: Trupti Mullen MD (06/15/2021 11:36 AM) [id number] DICTATED AND SIGNED BY: TRUPTI MULLEN MD DATE: 06/15/21 1136 CC: LEIGHTON CHAO MD; VOHS,JENNIFER M DO ~MTH0 0 Heart Score: C/O Chest Pain: Yes HEART Score for Chest Pain: HEART Score for Chest Pain Response (Comments) Value History Slighlty/Non-Suspicious 0 ECG Normal 0 Age < 45 0 Risk Factors 1 or 2 Risk Factors 1 Troponin < Normal Limit 0 Total 1 Risk Factors: Risk Factors: DM, Current or recent (<one month) smoker, HTN, HLP, family hist ory of CAD, obesity. Risk Scores: Score 0 - 3: 2.5% MACE over next 6 weeks - Discharge Home Score 4 - 6: 20.3% MACE over next 6 weeks - Admit for Clinical Observation Score 7 - 10: 72.7% MACE over next 6 weeks - Early Invasive Strategies Course & Med Decision Making: Course & Med Decision Making Pertinent Labs and Imaging studies reviewed. (See chart for details) Concern for multiple complaints emergency department including atypical chest pain, abnormal vaginal bleeding, anxiety, sleep deprivation and urinary complaints. Patient rested comfortably and slept emergency department. Patient with low heart score. Declined any narcotic analgesia or benzodiazepines. Unremarkable EKG with 2 - troponins and a D-dimer within normal limits. Urinalysis with hematuria consistent with patient being on her menses. Dissection is always considered, the low suspicion given well-appearing exam and mildly elevated blood pressure. Will discharge home with strict ED return precautions were given for syncope, neurologic deficits, hemoptysis or typical chest pain. Encouraged urgent outpatient follow-up with PMD and outpatient cardiology for nonemergent evaluation. Life-threatening processes were considered but are low suspicion at this time, given history, physical exam and ED workup. Pt was educated on all prescription medications and adverse effects. All patient's questions were answered and pt was stable at time of discharge. Life/limb-threatening differential includes but is not limited to, acute myocardial infarction, aortic dissection, congestive heart failure, esophageal injury including rupture, surgical abdomen, arrhythmia, cardiomyopathy, myocarditis, pericarditis, peptic ulcer disease, pneumomediastinum, pneumonia, pneumothorax, pulmonary embolus, unstable angina, rib fracture, contusion, pericardial tamponade or effusion, traumatic injury including mediastinal hemorrhage or hematoma, or pulmonary contusion. I have spoken with the patient and/or caregivers. I explained the patient's condition, diagnoses and treatment plan based on the information available to me at this time. I have answered the patient and/or caregiver's questions and addressed any concerns. The patient and/or caregivers have a good understanding of patient's diagnosis, condition and treatment plan as can be expected at this point. Vital signs have been stable. Patient's condition is stable and appropriate for discharge from the emergency department. Patient will pursue further outpatient evaluation with primary care physician or other designated or consulting physician as outlined in the discharge instructions. The patient and/or caregivers are agreeable to this plan of care and follow-up instructions have been explained in detail. The patient and/or caregivers have received these instructions in written form and have expressed an understanding of the discharge instructions. The patient and/or caregivers are aware that any significant change of condition or worsening of symptoms sh ould prompt immediate return to this or the closest emergency department or call to 911. Akosua Disclaimer: Akosua Disclaimer: This electronic medical record was generated, in whole or in part, using a voice recognition dictation system. Departure Departure: Impression: Primary Impression: Atypical chest pain Additional Impression: Stress at home Disposition: 01 HOME / SELF CARE / HOMELESS Condition: STABLE Referrals: LEIGHTON CHAO MD (PCP) Follow up with your pcp in 1-2 days or [facility] [phone] OR [facility]-Dr. Gupta [phone] Patient Instructions: Chest Pain (Nonspecific) Additional Instructions: FOLLOW UP WITH CARDIOLOGY: FOR DEFINITIVE MANAGEMENT of atypical chest pain [facility] [address] [place] [address] OR [facility] [address] [place] [address] FOLLOW UP WITH PSYCHIATRY: for anxiety and stress management/counseling [facility] [address], [address] [place] [address] [facility] [address] [place] [address] Jose Hoffman MD [facility] [address], [address] [place] [address] EMERGENCY DEPARTMENT GENERAL DISCHARGE INSTRUCTIONS Thank you for coming to [facility] (ED) today and trusting us with you care. We trust that you had a positivie experience in our Emergency Department. If you wish to speak to the department management, you may call the director at [phone]. YOUR FOLLOW UP INSTRUCTIONS ARE FOLLOWS: 1. Do you have a private Doctor? If you do not have a private doctor, please ask for a resource list of physicians or clinics that may be able to assist you with follow up care. 2. The Emergency Physician has interpreted your x-rays. The X-Ray specialist will also review them. If there is a change in the findings, you will be notified in 48 hours when at all possible. 3. A lab test or culture has been done, your results will be reviewed and you will be notified if you need a change in treatment. ADDITIONAL INSTRUCTIONS AND INFORMATION: 1. Your care today has been supervised by a physician who is specially trained in emergency care. Many problems require more than one evaluation for a complete diagnosis and treatment. We recommend that you schedule your follow up appointment as recommended to ensure complete treatment of you illness or injury. If you are unable to obtain follow up care and continue to have a problem, or if your condition worsens, we recommend that you return to the ED. 2. We are not able to safely determine your condition over the phone nor are we able to give sound medical advice over the phone. For these safety reasons, if you call for medical advice we will ask you to come to the ED for further evaluation. 3. If you have any questions regarding these discharge instructions please call the ED at [phone]. SAFETY INFORMATION: In the interest of safety, wellness, and injury prevention; we encourage you to wear your sealbelt, if you smoke; quite smoking, and we encourage family to use a protective helmet for bicycling and other sporting events that present an increased risk for head injury. IF YOUR SYMPTOMS WORSEN OR NEW SYMPTOMS DEVELOP, OR YOU HAVE CONCERNS ABOUT YOUR CONDITION; OR IF YOUR CONDITION WORSENS WHILE YOU ARE WAITING FOR YOUR FOLLOW UP APPO INTMENT; EITHER CONTACT YOUR PRIMARY CARE DOCTOR, THE PHYSICIAN WHOSE NAME AND NUMBER YOU WERE GIVEN, OR RETURN TO THE ED IMMEDIATELY. Scripts Hydroxyzine Hcl (HYDROXYZINE HCL) 25 Mg Tablet 1 TAB PO PRN BID PRN for ANXIETY / AGITATION, #20 TAB 0 Refills Be careful as this medication may make you mildly tired. I recommend not driving on this medication or operating heavy machinery. Prov: JENNIFER WINTERS DO 06/15/21 VOJENNIFER LAWSON DO Jun 15, 2021 15:04
[2021-06-15 15:20] VITALS: BP 156/88
[2021-06-16 20:07] LABS: CHLAMYDIA PROBE Negative (Negative)
== END 2021-06-15 15:25 | disposition home or self-care (01) ==
LOC: ER 09:34
DX: R07.89 Other chest pain (principal); F43.9 Reaction to severe stress, unspecified; Z98.51 Tubal ligation status; Z98.890 Other specified postprocedural states
CPT/HCPCS: 36415; 71045; 80053; 80307; 81001; 81025; 83690; 83735; 84484; 85025; 85379; 87086; 87491; 87591; 93005; 99285-25

== ENCOUNTER 2021-08-19 17:36 | Emergency (ER) | payer MEDICAID, OTHER ==
[~2021-08-19] VITALS: Ht 182.9 cm; Wt 95.0 kg
[~2021-08-19 17:36] MED LIST changes: -CYCL-331 PO; +CYCL10TA19 PO; +HYDR25TA PO
--- NOTE | 2021-08-19 17:46 | PHYS DOC ---
Past History Past Medical History: Anxiety, Hypothyroid Additional Past Medical Histor: brain aneursym Past Surgical History: , Tubal ligation, Other Additional Past Surgical Histo: UMBILICAL HERNIA Smoking: Non-smoker Alcohol Use: None Drug Use: None General Adult EDM: Chief Complaint: CHEST PAIN HPI: HPI: Patient is a 41 year old female well-known to the department who presents with central chest pressure, dizziness, diaphoresis. Patient has been seen in the department multiple times prior for similar symptoms. She states this time her chest pain is worse. She rates it 89/10 radiating to her right lower chest/upper abdomen. It has been constant for the past 3 hours. She reports associated dizziness, diaphoresis. Patient denies weakness, vision changes, visual field deficits, NVD. Review of Systems: Review of Systems: Constitutional: Denies fever or chills Eyes: Denies change in visual acuity or visual field deficits HENT: Denies nasal congestion or sore throat Respiratory: See HPI Cardiovascular: See HPI GI: See HPI : Denies dysuria or hematuria Musculoskeletal: Denies back pain or joint pain Integument: Denies rash or other skin lesions Neurologic: See HPI Psychiatric: See HPI Allergies: Allergies: Allergies Coded Allergies Type Severity Reaction Last Updated Verified Penicillins Allergy Unknown 08/11/17 Yes morphine Allergy Unknown 08/11/17 Yes Physical Exam: PE: Constitutional: Well developed, well nourished, non-toxic appearance, patient is tearful. Eyes: PERRLA, EOMI, conjunctiva normal, no discharge. Neck: Normal range of motion, no tenderness, supple, no stridor. Cardiovascular: Heart rate regular rhythm, no murmur. Lungs & Thorax: Bilateral breath sounds clear to auscultation. Abdomen: Bowel sounds normal, soft, no tenderness, no masses, no pulsatile masses. Skin: Warm, dry, no erythema, no rash. Neurologic: Alert and oriented x4, no focal deficits noted. Psychologic: Affect anxious and tearful, fair judgment, poor insight, mood "it's a lot going on." Current Patient Data: Labs: Laboratory Tests Test 08/19/21 17:51 08/19/21 18:12 White Blood Count 3.8 x10^3/uL (4.0-11.0) Red Blood Count 3.82 x10^6/uL (3.50-5.40) Hemoglobin 10.0 g/dL (12.0-15.5) Hematocrit 31.2 % (36.0-47.0) Mean Corpuscular Volume 82 fL (79-100) Mean Corpuscular Hemoglobin 26 pg (25-35) Mean Corpuscular Hemoglobin Concent 32 g/dL (31-37) Red Cell Distribution Width 20.3 % (11.5-14.5) Platelet Count 256 x10^3/uL (140-400) Neutrophils (%) (Auto) 52 % (31-73) Lymphocytes (%) (Auto) 36 % (24-48) Monocytes (%) (Auto) 10 % (0-9) Eosinophils (%) (Auto) 1 % (0-3) Basophils (%) (Auto) 2 % (0-3) Neutrophils # (Auto) 1.9 x10^3uL (1.8-7.7) Lymphocytes # (Auto) 1.3 x10^3/uL (1.0-4.8) Monocytes # (Auto) 0.4 x10^3/uL (0.0-1.1) Eosinophils # (Auto) 0.0 x10^3/uL (0.0-0.7) Basophils # (Auto) 0.1 x10^3/uL (0.0-0.2) Sodium Level 136 mmol/L (136-145) Potassium Level 3.7 mmol/L (3.5-5.1) Chloride Level 98 mmol/L (98-107) Carbon Dioxide Level 23 mmol/L (21-32) Anion Gap 15 (6-14) Blood Urea Nitrogen 8 mg/dL (7-20) Creatinine 0.8 mg/dL (0.6-1.0) Estimated GFR (Cockcroft-Gault) 95.6 BUN/Creatinine Ratio 10 (6-20) Glucose Level 94 mg/dL (70-99) Calcium Level 8.6 mg/dL (8.5-10.1) Total Bilirubin 0.5 mg/dL (0.2-1.0) Aspartate Amino Transf (AST/SGOT) 73 U/L (15-37) Alanine Aminotransferase (ALT/SGPT) 56 U/L (14-59) Alkaline Phosphatase 81 U/L (46-116) Troponin I High Sensitivity 6 ng/L (4-50) Total Protein 8.0 g/dL (6.4-8.2) Albumin 4.0 g/dL (3.4-5.0) Albumin/Globulin Ratio 1.0 (1.0-1.7) Lipase 110 U/L (73-393) Vital Signs: VS - Last 72 Hours, by Label Date Time Temp Pulse Resp B/P (MAP) Pulse Ox O2 Delivery O2 Flow Rate FiO2 08/19/21 19:17 76 15 137/73 (94) 100 08/19/21 18:43 77 20 139/53 (81) 100 08/19/21 17:40 98.3 80 18 156/88 (110) 100 EKG: EKG: EKG Interpreted by Dr. Alba at 1748: Regular rate and rhythm 78 bpm with no ectopic beats. QT 370 ms/QTc [address]-T wave changes. Radiology/Procedures: Radiology/Procedures: PROCEDURE: PORTABLE CHEST 1V Single view chest dated 08/19/2021 6:03 PM: COMPARISON: 06/15/2021 Clinical Indication: Chest pain. Findings: Single upright portable exam of the chest was performed. Heart size and mediastinal contours are within normal limits. Lungs are clear. No consolidation or pleural effusion. No pneumothorax. IMPRESSION: No acute radiographic abnormality. Electronically signed by: Carter Rahman MD (08/19/2021 6:03 PM) [facility] [place] Heart Score: C/O Chest Pain: Yes HEART Score for Chest Pain: HEART Score for Chest Pain Response (Comments) Value History Slighlty/Non-Suspicious 0 ECG Normal 0 Age < 45 0 Risk Factors No Risk Factors 0 Troponin < Normal Limit 0 Total 0 Risk Factors: Risk Factors: none Risk Scores: Score 0 - 3: 2.5% MACE over next 6 weeks - Discharge Home Score 4 - 6: 20.3% MACE over next 6 weeks - Admit for Clinical Observation Score 7 - 10: 72.7% MACE over next 6 weeks - Early Invasive Strategies Course & Med Decision Making: Course & Med Decision Making Pertinent Labs and Imaging studies reviewed. (See chart for details) Patient who is well-known to the department presents today with very similar complaints as prior visits related to chest pain and anxiety. Work-up will include EKG, chest x-ray, troponin, lab work. Initially, patient denied nausea and vomiting, but states she feels nauseated department. Zofran will be administered. Work-up today is largely reassuring. After Zofran and ketorolac administration, patient states her symptoms have all resolved. She declines hydroxyzine in the department, but is agreeable to a prescription for return of symptoms. Patient was given return precautions. She understands and is agreeable to discharge plan. Dragon Disclaimer: Dragon Disclaimer: This electronic medical record was generated, in whole or in part, using a voice recognition dictation system. Departure Departure: Impression: Primary Impression: Non-cardiac chest pain Additional Impression: Severe anxiety Disposition: HOME / SELF CARE / HOMELESS Condition: STABLE Referrals: LEIGHTON CHAO MD (PCP) Patient Instructions: Anxiety and Panic Attacks, [id number], Chest Pain (Nonspecific), Droo-gr-Lbna Scripts Hydroxyzine Hcl (HYDROXYZINE HCL) 25 Mg Tablet 1 TAB PO PRN BID PRN for ANXIETY / AGITATION, #20 TAB Prov: ANKUR GOFF 08/19/21 ANKUR GOFF Aug 19, 2021 17:46
--- NOTE | 2021-08-19 18:06 | RAD ---
Single view chest dated 08/19/2021 6:03 PM: COMPARISON: 06/15/2021 Clinical Indication: Chest pain. Findings: Single upright portable exam of the chest was performed. Heart size and mediastinal contours are with in normal limits. Lungs are clear. No consolidation or pleural effusion. No pneumothorax. IMPRESSION: No acute radiographic abnormality. Electronically signed by: Carter Rahman MD (08/19/2021 6:03 PM) [facility]
[2021-08-19 18:07] LABS: BASO # 0.1 x10^3/uL (0.0-0.2); BASO % 2 % (0-3); EOS % 1 % (0-3); HEMATOCRIT 31.2 % (36.0-47.0); LYMPH # 1.3 x10^3/uL (1.0-4.8); LYMPH % 36 % (24-48); MEAN CORPUSCULAR HEMOGLOBIN 26 pg (25-35); MEAN CORPUSCULAR HGB CONC 32 g/dL (31-37); MEAN CORPUSCULAR VOLUME 82 fL (79-100); MONO # 0.4 x10^3/uL (0.0-1.1); MONO % 10 % (0-9); NEUT # 1.9 x10^3uL (1.8-7.7); NEUT % 52 % (31-73); PLATELET COUNT 256 x10^3/uL (140-400); RED BLOOD COUNT 3.82 x10^6/uL (3.50-5.40); RED CELL DISTRIBUTION WIDTH 20.3 % (11.5-14.5); WHITE BLOOD COUNT 3.8 x10^3/uL (4.0-11.0)
--- NOTE | 2021-08-19 18:07 | EKG ---
[address] [address] Test Date: 2021-08-19 Test Time: 17:47:39 Pat Name: ROSE GUTIERREZ Department: Room: Gender: F Executive Steward: NINA : 1980 Requested By: ANKUR GOFF Order Number: [id number] Reading MD: Garland Beltran Measurements Intervals [place] Rate: 78 P: 90 [place]: 148 QRS: 73 QRSD: 84 T: 66 QT: 370 QTc: 425 Interpretive Statements SINUS RHYTHM Electronically Signed On 08-22-2021 16:29:20 [employer] by Garland Beltran
[2021-08-19] MEDS ORDERED: KETOROLAC 15 MG/ML VIAL. ONE (18:10)
[2021-08-19] MEDS ORDERED: ONDANSETRON PF 4 MG/2 ML VIAL. ONE (18:10)
[2021-08-19 18:15] LABS: CALCIUM 8.6 mg/dL (8.5-10.1); CREATININE 0.8 mg/dL (0.6-1.0); GFR 95.6; POTASSIUM 3.7 mmol/L (3.5-5.1)
[2021-08-19] MEDS ORDERED: hydrOXYzine HCL 25 MG TABLET PO PRN (18:15)
[2021-08-19] MEDS ORDERED: KETOROLAC 30 MG/ML VIAL. IVP ONE (18:15)
[2021-08-19] MEDS ORDERED: ONDANSETRON PF 4 MG/2 ML VIAL. IVP ONE (18:15)
[2021-08-19 18:21] LABS: TOTAL BILIRUBIN 0.5 mg/dL (0.2-1.0)
[2021-08-19] MEDS ORDERED: methylPREDNISolone SOD SUCC PF 40 MG/ML VIAL. IV ONE (19:15)
[2021-08-19 19:17] VITALS: BP 137/73
[2021-08-19] MEDS ORDERED: HYDR25TA PO (19:25)
[2021-08-19 20:34] LABS: ANISOCYTOSIS SLIGHT; PLT ESTIMATE ADEQUATE (ADEQUATE)
[2021-08-19 20:35] LABS: HYPOCHROMIA SLIGHT
== END 2021-08-19 19:29 | disposition home or self-care (01) ==
LOC: ER 17:36
DX: R07.89 Other chest pain (principal); F41.9 Anxiety disorder, unspecified; E03.9 Hypothyroidism, unspecified; Z88.0 Allergy status to penicillin; Z88.5 Allergy status to narcotic agent
CPT/HCPCS: 36415; 71045; 80053; 83690; 84484; 85025; 93005; 96374; 96375; 99285; J1885; J2405

== ENCOUNTER 2021-09-10 22:57 | Emergency (ER) | payer MEDICAID, OTHER ==
[~2021-09-10] VITALS: Ht 182.9 cm; Wt 100.3 kg
--- NOTE | 2021-09-10 23:01 | PHYS DOC ---
Past History Past Medical History: Anxiety, Hypothyroid Additional Past Medical Histor: Thyroid ablation Past Surgical History: , Tubal ligation, Other Additional Past Surgical Histo: UMBILICAL HERNIA Smoking: Non-smoker Alcohol Use: Rarely Drug Use: None General Adult HPI: HPI: ".. I still got chest pain.. it never stopped since the other day... I even followed up with my doctor.. Santi... felt it was pleuritic chest pain.. Patient is a 41 year old female who presents with above hx and complaints of chest pain. Chest pain is central and radiates to Lt. shoulder with movement and deep breaths. Patient seen 1214 for similar complaint has seen Dr. Hancock and place on Naproxin with minimal improvement. Patient does have a history of positive Covid infection diagnosed . Has not gotten Covid vaccination. Has not gotten flu vaccination. Does have a history of anxiety, hypothyroid post thyroid ablation with oral radioactive iodine, brain aneurysm, has had C- section and tubal ligation. Patient denies any history of DVTs or pulmonary embolisms. Patient has increased anxiety, episodes of dizziness and diaphoresis with episodes of chest pain. Review of Systems: Review of Systems: Constitutional: Denies fever or chills Eyes: Denies change in visual acuity HENT: Denies nasal congestion or sore throat Respiratory: Denies cough or shortness of breath Cardiovascular: Complains of chest pain GI: Denies abdominal pain, nausea, vomiting, bloody stools or diarrhea : Denies dysuria Musculoskeletal: Denies back pain or joint pain Integument: Denies rash Neurologic: Denies headache, focal weakness or sensory changes Endocrine: Denies polyuria or polydipsia Lymphatic: Denies swollen glands Psychiatric: Denies depression or anxiety Family History: Family History: Noncontributory Current Medications: Current Meds: See nursing for home meds Allergies: Allergies: Allergies Coded Allergies Type Severity Reaction Last Updated Verified Penicillins Allergy Unknown 08/11/17 Yes morphine Allergy Unknown 08/11/17 Yes Physical Exam: PE: Constitutional: Moderate acute distress, non-toxic appearance. [] HENT: Normocephalic, atraumatic, bilateral external ears normal, oropharynx moist, no oral exudates, nose normal. [] Eyes: PERRLA, EOMI, conjunctiva normal, no discharge. [] Neck: Normal range of motion, no tenderness, supple, no stridor. [] Cardiovascular:Heart rate regular rhythm, no murmur [] Lungs & Thorax: Bilateral breath sounds equal apex on auscultation [] Abdomen: Bowel sounds normal, soft, no tenderness, no masses, no pulsatile masses. [] Skin: Warm, dry, no erythema, no rash. [] Back: No tenderness, no CVA tenderness. [] Extremities: No tenderness, no cyanosis, no clubbing, ROM intact, no edema. No cording appreciated Neurologic: Alert and oriented X 3, normal motor function, normal sensory function, no focal deficits noted. [] Psychologic: Affect normal, judgement normal, mood normal. [] EKG: EKG: My interpretation of EKG shows a sinus rhythm with no acute findings of STEMI. Rate is 66. Time of EKG is 2320 hrs. [] My interpretation EKG #2 shows a sinus rhythm at 63 bpm. No acute morphology. No acute interval change as compared to prior EKG. Time of this EKG is 0132 hrs. Radiology/Procedures: Radiology/Procedures: [place] [address] IMAGING REPORT Signed PATIENT: ROSE GUTIERREZ ACCOUNT: [id number] : 1980 LOCATION: ER AGE: 41 SEX: F EXAM STATUS: REG ER ORD. PHYSICIAN: LUIS DE SANTIAGO MD REASON: Chest pain Omni 350 100cc PROCEDURE: CT ANGIOGRAPHY CHEST EXAM: CT chest with contrast - pulmonary embolus protocol CLINICAL HISTORY: Chest pain COMPARISON: None. TECHNIQUE: CT of the chest following the administration of intravenous contrast during the pulmonary arterial phase. Axial, coronal and sagittal reformatted images were generated including MIP images. ---PQRS compliance statement - One or more of the following individualized dose reduction techniques were utilized for this study: 1. Automated exposure control 2. Adjustment of the mA and/or kV according to patient size 3. Use of iterative reconstruction technique--- FINDINGS: CHEST: Diagnostic quality: Adequate. Pulmonary emboli: None seen Right heart strain: None Pulmonary arteries: Normal in caliber. Heart is not enlarged. No pericardial effusion. Mild dilation ascending aorta measuring up to 3.9 cm. 12 mm groundglass nodule in the lingula. Linear opacities in lower lobes likely scarring/atelectasis. No mediastinal or hilar lymphadenopathy. No axillary lymphadenopathy. Visualized Upper abdomen: Unremarkable Bones: No aggressive osseous lesion. Evaluation limited given MIP reconstructions. Diminutive appearance of the left first rib, chronic. IMPRESSION: 1. No evidence for acute pulmonary embolus. 2. 12 mm groundglass nodule in the lingula. Per Fleischner Society guidelines for incidentally found solitary ground-glass nodule, follow-up CT is recommended in 6-12 months, then every 2 years until 5 years. 3. 3.9 cm dilation of the ascending aorta. Electronically signed by: Fermin Rao MD (09/11/2021 1:12 AM) [facility] DICTATED AND SIGNED BY: FERMIN RAO MD DATE: 09/11/21105 CC: LUIS DE SANTIAGO MD; LEIGHTON HANCOCK MD ~MTH0 0 Signed PATIENT: ROSE GUTIERREZ ACCOUNT: [id number] : 1980 LOCATION: ER AGE: 41 SEX: F EXAM STATUS: REG ER ORD. PHYSICIAN: LUIS DE SANTIAGO MD REASON: LOVE, Dizzy - hx brain aneursym, thyroid ca- s/p surgery PROCEDURE: CT HEAD AND CERVICAL SPINE WO EXAM: CT HEAD WITHOUT IV CONTRAST CLINICAL HISTORY: Reason: LOVE, Dizzy - hx brain aneursym, thyroid ca- s/p surgery / Spl. Instructions: / History: COMPARISON: None. TECHNIQUE: Routine CT of the head without contrast. Soft tissues and bone windows were reviewed. PQRS compliance statement - One or more of the following individualized dose reduction techniques were utilized for this study: 1. Automated exposure control 2. Adjustment of the mA and/or kV according to patient size 3. Use of iterative reconstruction technique FINDINGS: There is no evidence of hemorrhage, mass or extra-axial fluid collection. Ibrahim-white differentiation is maintained with no evidence of edema. There is no mass effect or shift of the intracranial structures. The ventricles, basilar cisterns and cortical sulci are normal in size and configuration for the patients stated age. The cerebellum and brainstem are unremarkable. The calvarium demonstrates no evidence of fracture or focal lesion. There is normal aeration of the visualized paranasal sinuses and mastoid air cells. The visualized portions of the orbits are normal. IMPRESSION: No evidence for acute intracranial process. EXAM: CT CERVICAL SPINE WITHOUT IV CONTRAST CLINICAL HISTORY: Reason: LOVE, Dizzy - hx brain aneursym, thyroid ca- s/p surgery / Spl. Instructions: / History: COMPARISON: None available. TECHNIQUE: Helical CT of the cervical spine was performed. Axial, coronal and sagittal reformatted images were also performed. PQRS compliance statement - One or more of the following individualized dose reduction techniques were utilized for this study: 1. Automated exposure control 2. Adjustment of the mA and/or kV according to patient size 3. Use of iterative reconstruction technique FINDINGS: Vertebral body heights are preserved. No spondylolisthesis. Intervertebral disc heights are preserved. IMPRESSION: No acute cervical spine fracture or subluxation. Electronically signed by: Fermin Rao MD (09/11/2021 1:06 AM) [facility] DICTATED AND SIGNED BY: FERMIN RAO MD DATE: 09/11/21 0100 CC: LUIS DE SANTIAGO MD; LEIGHTON HANCOCK MD ~MTH0 0 [][place] [address] IMAGING REPORT Signed PATIENT: ROSE GUTIERREZ ACCOUNT: [id number] : 1980 LOCATION: ER AGE: 41 SEX: F EXAM STATUS: REG ER ORD. PHYSICIAN: LUIS DE SANTIAGO MD REASON: cp PROCEDURE: PORTABLE CHEST 1V EXAM: AP View of the chest DATE: 09/10/2021 11:10 PM INDICATION: Reason: cp / Spl. Instructions: / History: Chest pain COMPARISON: 08/19/2021 FINDINGS: The heart is not enlarged. Mediastinal and hilar contours are normal. No focal parenchymal airspace opacity. No pleural effusion or pneumothorax. IMPRESSION: 1. No radiographic evidence for acute cardiopulmonary process. Electronically signed by: Fermin Rao MD (09/11/2021 12:46 AM) [facility] DICTATED AND SIGNED BY: FERMIN RAO MD DATE: 09/11/21 0046 CC: LUIS DE SANTIAGO MD; LEIGHTON HANCOCK MD ~MTH0 0 Heart Score: C/O Chest Pain: Yes HEART Score for Chest Pain: HEART Score for Chest Pain Response (Comments) Value History Slighlty/Non-Suspicious 0 ECG Normal 0 Age < 45 0 Risk Factors 1 or 2 Risk Factors 1 Troponin < Normal Limit 0 Total 1 Risk Factors: Risk Factors: DM, Current or recent (<one month) smoker, HTN, HLP, family history of CAD, obesity. Risk Scores: Score 0 - 3: 2.5% MACE over next 6 weeks - Discharge Home Score 4 - 6: 20.3% MACE over next 6 weeks - Admit for Clinical Observation Score 7 - 10: 72.7% MACE over next 6 weeks - Early Invasive Strategies Course & Med Decision Making: Course & Med Decision Making Pertinent Labs and Imaging studies reviewed. (See chart for details) Patient refusing swabs for flu and COVID. Pt. to follow up with primary and get an out pt stress testing. Review ED work up and pending labs with primary. I nvestigate other causes of chest pain. Follow up CT in 6 months. Suspect viral syndrome- or post viral syndrome. MV OTC. Impression: 1. Chest Pain-pleuritic/ Chest Wall Pain 2. Anemia Hgb= 10.1 3. Hx Hypothyroid- post ablation 4. 12 mm Nodule in Lingula 5. Anxiety [] Dragon Disclaimer: Dragon Disclaimer: This electronic medical record was generated, in whole or in part, using a voice recognition dictation system. Departure Departure: Referrals: LEIGHTON HANCOCK MD (PCP) Dragon Disclaimer This chart was dictated in whole or in part using Voice Recognition software in a busy, high-work load, and often noisy Emergency Department environment. It may contain unintended and wholly unrecognized errors or omissions. LUIS DE SANTIAGO MD Sep 10, 2021 23:01
[2021-09-10] MEDS ORDERED: ASPIRIN CHEWABLE 81 MG TABLET. PO ONE (23:15)
[2021-09-10] MEDS ORDERED: IV RINGERS SOLUTION,LACTATED 1,000 ML IV SCH (23:15)
[2021-09-10] MEDS ORDERED: IV RINGERS SOLUTION,LACTATED 1,000 ML IV ONE (23:30)
[2021-09-10] MEDS ORDERED: IOHEXOL 350 MG/ML 100 ML VIAL. IV ONE (23:30)
[2021-09-10] MEDS ORDERED: CONTRAST GIVEN. MC PRN (23:30)
[2021-09-10] MEDS ORDERED: KETOROLAC 30 MG/ML VIAL. IVP ONE (23:30)
--- NOTE | 2021-09-10 23:46 | EKG ---
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
[2021-09-11 00:09] LABS: BASO # 0.1 x10^3/uL (0.0-0.2); BASO % 2 % (0-3); EOS % 1 % (0-3); HEMATOCRIT 31.3 % (36.0-47.0); HEMOGLOBIN 10.1 g/dL (12.0-15.5); LYMPH # 0.9 x10^3/uL (1.0-4.8); LYMPH % 27 % (24-48); MEAN CORPUSCULAR HEMOGLOBIN 28 pg (25-35); MEAN CORPUSCULAR HGB CONC 32 g/dL (31-37); MEAN CORPUSCULAR VOLUME 87 fL (79-100); MONO # 0.5 x10^3/uL (0.0-1.1); MONO % 13 % (0-9); NEUT # 1.9 x10^3uL (1.8-7.7); NEUT % 57 % (31-73); PLATELET COUNT 278 x10^3/uL (140-400); RED CELL DISTRIBUTION WIDTH 23.9 % (11.5-14.5); WHITE BLOOD COUNT 3.4 x10^3/uL (4.0-11.0)
[2021-09-11 00:27] LABS: CALCIUM 8.9 mg/dL (8.5-10.1); CREATININE 0.8 mg/dL (0.6-1.0); GFR 95.6
[2021-09-11 00:34] LABS: % EOS 2 % (0-5); % LYMPHS 28 % (24-48); % MONOS 6 % (0-10); % SEGS 64 % (35-66)
[2021-09-11 00:35] LABS: ANISOCYTOSIS SLIGHT; HYPOCHROMIA MARKED; PLT ESTIMATE ADEQUATE (ADEQUATE)
[2021-09-11 00:36] LABS: ALBUMIN 4.1 g/dL (3.4-5.0); DIRECT BILIRUBIN 0.2 mg/dL (0.0-0.2); TOTAL BILIRUBIN 0.5 mg/dL (0.2-1.0); TOTAL PROTEIN 7.3 g/dL (6.4-8.2)
--- NOTE | 2021-09-11 00:49 | RAD ---
EXAM: AP View of the chest DATE: 09/10/2021 11:10 PM INDICATION: Reason: cp / Spl. Instructions: / History: Chest pain COMPARISON: 08/19/2021 FINDINGS: The heart is not enlarged. Mediastinal and hilar contours are normal. No focal parenchymal airspace opacity. No pleural effusion or pneumothorax. IMPRESSION: 1. No radiographic evidence for acute cardiopulmonary process. Electronically signed by: Fermin Jones MD (09/11/2021 12:46 AM) [facility]
[2021-09-11 00:51] LABS: BARBITURATES NEG (NEG); BENZODIAZEPINES NEG (NEG); CANNABINOIDS NEG (NEG); COCAINE NEG (NEG); METHADONE NEG (NEG); OPIATES NEG (NEG); PHENCYCLIDINE NEG (NEG)
[2021-09-11 00:52] LABS: BACTERIA,URINE 0 /HPF (0-FEW); BILIRUBIN,URINE NEG (NEG); CLARITY,URINE CLEAR; COLOR,URINE YELLOW; GLUCOSE,URINE NEG (NEG); NITRITE,URINE NEG (NEG); SQUAMOUS EPITHELIAL CELL,UR OCC /LPF; UROBILINOGEN,URINE 0.2 mg/dL (0.2 mg/dL); WBC,URINE OCC /HPF (0-4)
[2021-09-11 00:53] LABS: AMPHETAMINE/METHAMPHETAMINE NEG (NEG)
--- NOTE | 2021-09-11 01:09 | RAD ---
EXAM: CT HEAD WITHOUT IV CONTRAST CLINICAL HISTORY: Reason: LOVE, Dizzy - hx brain aneursym, thyroid ca- s/p surgery / Spl. Instructions: / History: COMPARISON: None. TECHNIQUE: Routine CT of the head without contrast. Soft tissues and bone windows were reviewed. PQRS compliance statement - One or more of the following individualized dose reduction techniques wer e utilized for this study: 1. Automated exposure control 2. Adjustment of the mA and/or kV according to patient size 3. Use of iterative reconstruction technique FINDINGS: There is no evidence of hemorrhage, mass or extra-axial fluid collection. Ibrahim-white differentiation is maintained with no evidence of edema. There is no mass effect or shift of the intracranial structures. The ventricles, basilar cisterns and cortical sulci are normal in size and configuration for the davin ents stated age. The cerebellum and brainstem are unremarkable. The calvarium demonstrates no evidence of fracture or focal lesion. There is normal aeration of the visualized paranasal sinuses and mastoid air cells. The visualized portions of the orbits are normal. IMPRESSION: No evidence for acute intracranial process. EXAM: CT CERVICAL SPINE WITHOUT IV CONTRAST CLINICAL HISTORY: Reason: LOVE, Dizzy - hx brain aneursym, thyroid ca- s/p surgery / Spl. Instructions: / History: COMPARISON: None available. TECHNIQUE: Helical CT of the cervical spine was performed. Axial, coronal and sagittal reformatted im ages were also performed. PQRS compliance statement - One or more of the following individualized dose reduction techniques wer e utilized for this study: 1. Automated exposure control 2. Adjustment of the mA and/or kV according to patient size 3. Use of iterative reconstruction technique FINDINGS: Vertebral body heights are preserved. No spondylolisthesis. Intervertebral disc heights are preserved. IMPRESSION: No acute cervical spine fracture or subluxation. Electronically signed by: Fermin Jones MD (09/11/2021 1:06 AM) [facility]
--- NOTE | 2021-09-11 01:14 | RAD ---
EXAM: CT chest with contrast - pulmonary embolus protocol CLINICAL HISTORY: Chest pain COMPARISON: None. TECHNIQUE: CT of the chest following the administration of intravenous contrast during the pulmonary arterial phase. Axial, coronal and sagittal reformatted images were generated including MIP images. ---PQRS compliance statement - One or more of the following individualized dose reduction techniques were utilized for this study: 1. Automated exposure control 2. Adjustment of the mA and/or kV according to patient size 3. Use of iterative reconstruction technique--- FINDINGS: CHEST: Diagnostic quality: Adequate. Pulmonary emboli: None seen Right heart strain: None Pulmonary arteries: Normal in caliber. Heart is not enlarged. No pericardial effusion. Mild dilation ascending aorta measuring up to 3.9 cm. 12 mm groundglass nodule in the lingula. Linear opacities in lower lobes likely scarring/atelectasis. No mediastinal or hilar lymphadenopathy. No axillary lymphadenopathy. Visualized Upper abdomen: Unremarkable Bones: No aggressive osseous lesion. Evaluation limited given MIP reconstructions. Diminutive appeara nce of the left first rib, chronic. IMPRESSION: 1. No evidence for acute pulmonary embolus. 2. 12 mm groundglass nodule in the lingula. Per Fleischner Society guidelines for incidentally found solitary ground-glass nodule, follow-up CT is recommended in 6-12 months, then every 2 years until 5 years. 3. 3.9 cm dilation of the ascending aorta. Electronically signed by: Fermin Jones MD (09/11/2021 1:12 AM) [facility]
[2021-09-11] MEDS ORDERED: methylPREDNISolone ACETATE 40 MG/ML VIAL. IM ONE (01:30)
--- NOTE | 2021-09-11 01:40 | EKG ---
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
[2021-09-11 02:38] VITALS: BP 140/74
[2021-09-11 21:09] LABS: THYROID STIM HORMONE (TSH) 31.538 uIU/mL (0.358-3.740)
== END 2021-09-11 02:50 | disposition home or self-care (01) ==
LOC: ER 22:57
DX: R07.81 Pleurodynia (principal); D64.9 Anemia, unspecified; R91.1 Solitary pulmonary nodule; F41.9 Anxiety disorder, unspecified; E03.9 Hypothyroidism, unspecified; Z88.0 Allergy status to penicillin; Z88.5 Allergy status to narcotic agent
CPT/HCPCS: 36415; 70450; 71045; 71275; 72125; 80048; 80061; 80076; 80307; 81001; 81025; 82550; 83690; 83735; 83880; 84443; 84484; 85007; 85025; 85379; 85610; 85730; 93005; 96374; 99285; J1885; Q9967

== ENCOUNTER 2021-09-19 20:27 | Emergency (ER) | payer MEDICAID ==
[~2021-09-19] VITALS: Ht 182.9 cm; Wt 100.1 kg
[2021-09-19] MEDS ORDERED: NAPR500T8 PO (20:44)
[2021-09-19] MEDS ORDERED: ACET500T68 PO (20:44)
[2021-09-19] MEDS ORDERED: IV NORMAL SALINE 1,000ML 1,000 ML IV SCH (20:45)
--- NOTE | 2021-09-19 20:48 | PHYS DOC ---
Past History Past Medical History: Anxiety, Hypothyroid Additional Past Medical Histor: Thyroid ablation, COVID-19 (RICHARD SUMMERS APRN) Past Surgical History: , Tubal ligation, Other Additional Past Surgical Histo: UMBILICAL HERNIA (RICAHRD SUMMERS APRN) Smoking: Non-smoker Alcohol Use: None Drug Use: None (RICHARD SUMMERS APRN) General Adult EDM: Chief Complaint: CHEST PAIN HPI: HPI: Patient is a 41-year-old female who presents to the emergency department for intermittent midsternal chest pain that has been going on since being diagnosed with COVID-19 in June. Patient has been seen previously multiple times in this emergency department and in her primary care provider's office for the symptoms. She was diagnosed with pleuritic chest pain and advised to take naproxen and Tylenol at home. Patient reports that her chest pain is radiating to her left shoulder. It is 7 out of 10. She states that it is worse with eating and drinking. No alleviating factors. She denies any shortness of breath, nausea, vomiting, cough, fever. (RICHARD SUMMERS APRN) Review of Systems: Review of Systems: Constitutional: negative unless reported in HPI Eyes: negative unless reported in HPI HENT: negative unless reported in HPI Respiratory: negative unless reported in HPI Cardiovascular: negative unless reported in HPI GI: negative unless reported in HPI : negative unless reported in HPI Musculoskeletal: negative unless reported in HPI Integument: negative unless reported in HPI Neurologic: negative unless reported in HPI Endocrine: negative unless reported in HPI Lymphatic: negative unless reported in HPI Psychiatric: negative unless reported in HPI (RICHARD SUMMERS APRN) Current Medications: Current Meds: Current Medications Medications (Trade) Dose Ordered Sig/Yoav Start Time Stop Time Status Last Admin Dose Admin Sodium Chloride 1,000 ml @ 1,000 mls/hr Q1H 09/19/21 20:45 09/19/21 21:44 (RICHARD SUMMERS APRN) Allergies: Allergies: Allergies Coded Allergies Type Severity Reaction Last Updated Verified Penicillins Allergy Unknown 09/19/21 Yes morphine Allergy Unknown 09/19/21 Yes mushroom Allergy Unknown 09/19/21 Yes Uncoded Allergies Type Severity Reaction Last Updated Verified retinol A Allergy Unknown 09/19/21 (RICHARD SUMMERS APRN) Physical Exam: PE: Constitutional: Well developed, well nourished, no acute distress, non-toxic appearance. [] HENT: Normocephalic, atraumatic, bilateral external ears normal, oropharynx m oist, no oral exudates, nose normal. [] Eyes: PERRL, EOMI, conjunctiva normal, no discharge. [] Neck: Normal range of motion, no stridor Cardiovascular:Heart rate regular rhythm, no murmur, chest pain reproducible with palpation [] Lungs & Thorax: Bilateral breath sounds clear to auscultation [] Abdomen: Bowel sounds normal, soft, no tenderness, no masses, no pulsatile masses. [] Skin: Warm, dry, no erythema, no rash. [] Back: Normal range of motion Extremities: No tenderness, no cyanosis, no clubbing, ROM intact, no edema. [] Neurologic: Alert and oriented X 3, normal motor function, normal sensory function, no focal deficits noted. [] Psychologic: Affect normal, judgement normal, mood normal. [] (RICHARD SUMMERS APRN) Current Patient Data: Labs: Laboratory Tests Test 09/19/21 20:55 09/19/21 21:05 White Blood Count 5.1 x10^3/uL Red Blood Count 3.47 x10^6/uL Hemoglobin 9.6 g/dL Hematocrit 30.1 % Mean Corpuscular Volume 87 fL Mean Corpuscular Hemoglobin 28 pg Mean Corpuscular Hemoglobin Concent 32 g/dL Red Cell Distribution Width 23.1 % Platelet Count 318 x10^3/uL Neutrophils (%) (Auto) 57 % Lymphocytes (%) (Auto) 32 % Monocytes (%) (Auto) 8 % Eosinophils (%) (Auto) 1 % Basophils (%) (Auto) 1 % Neutrophils # (Auto) 2.9 x10^3uL Lymphocytes # (Auto) 1.6 x10^3/uL Monocytes # (Auto) 0.4 x10^3/uL Eosinophils # (Auto) 0.0 x10^3/uL Basophils # (Auto) 0.1 x10^3/uL Platelet Estimate Pending Sodium Level 133 mmol/L Potassium Level 4.1 mmol/L Chloride Level 95 mmol/L Carbon Dioxide Level 25 mmol/L Anion Gap 13 Blood Urea Nitrogen 12 mg/dL Creatinine 0.9 mg/dL Estimated GFR (Cockcroft-Gault) 83.5 BUN/Creatinine Ratio 13 Glucose Level 77 mg/dL Calcium Level 8.2 mg/dL Total Bilirubin 0.6 mg/dL Aspartate Amino Transf (AST/SGOT) 32 U/L Alanine Aminotransferase (ALT/SGPT) 25 U/L Alkaline Phosphatase 62 U/L Troponin I High Sensitivity < 4 ng/L Total Protein 7.5 g/dL Albumin 4.1 g/dL Albumin/Globulin Ratio 1.2 Urine Opiates Screen Neg Urine Methadone Screen Neg Urine Barbiturates Neg Urine Phencyclidine Screen Neg Urine Amphetamine/Methamphetamine Neg Urine Benzodiazepines Screen Neg Urine Cocaine Screen Neg Urine Cannabinoids Screen Neg Urine Ethyl Alcohol Neg Bedside Urine HCG, Qualitative hcg negative Current Medications Medications (Trade) Dose Ordered Sig/Yoav Route PRN Reason Start Time Stop Time Status Last Admin Dose Admin Sodium Chloride 1,000 ml @ 1,000 mls/hr Q1H IV 09/19/21 20:45 09/19/21 21:44 Multi-Ingredient Mouthwash/Gargle (Gi Cocktail) 20 ml 1X ONCE PO 09/19/21 21:00 09/19/21 21:01 DC 09/19/21 21:14 (RICHARD SUMMERS APRN) EKG: EKG: EKG performed by ER staff at 2036 shows sinus rhythm with a rate of 69, QTc of 400, no STEMI read by Dr. Hatfield. [] (RICHARD SUMMERS APRN) Radiology/Procedures: Radiology/Procedures: []PROCEDURE: PORTABLE CHEST 1V AP chest HISTORY: Chest pain AP view was taken of the chest. Lungs are free of infiltrates. Heart is normal in size. There is no effusion. IMPRESSION: 1. No acute chest disease. Electronically signed by: Solitario Duran MD (09/19/2021 9:19 PM) [facility] DICTATED AND SIGNED BY: SOLITARIO DURAN MD DATE: 09/19/212117 CC: RICHARD SUMMERS APRN; LEIGHTON HANCOCK MD ~MTH0 0 (RICHARD SUMMERS APRN) Heart Score: C/O Chest Pain: Yes HEART Score for Chest Pain: HEART Score for Chest Pain Response (Comments) Value History Slighlty/Non-Suspicious 0 ECG Normal 0 Age < 45 0 Risk Factors No Risk Factors 0 Troponin < Normal Limit 0 Total 0 Risk Factors: Risk Factors: DM, Current or recent (<one month) smoker, HTN, HLP, family history of CAD, obesity. Risk Scores: Score 0 - 3: 2.5% MACE over next 6 weeks - Discharge Home Score 4 - 6: 20.3% MACE over next 6 weeks - Admit for Clinical Observation Score 7 - 10: 72.7% MACE over next 6 weeks - Early Invasive Strategies (RICHARD SUMMERS APRN) Course & Med Decision Making: Course & Med Decision Making Pertinent Labs and Imaging studies reviewed. (See chart for details) Patient presents to the emergency department for midsternal chest pain that radiates to her left shoulder that has been intermittent for 3 months after being diagnosed with COVID-19. Patient has been seen and evaluated by this multiple times in this emergency department. Patient reports that the pain is worse after eating so she was treated with a GI cocktail. Work-up in the ER also consisted of blood work, EKG and chest x-ray. Patient's blood work was unremarkable. Chest x-ray showed no acute findings. Patient advised to follow-up with her primary care provider regarding her chronic atypical chest pain. Patient's vital signs are stable and she is in no acute distress. Heart score is 0. Patient has been referred to cardiology for additional testing. I discussed with patient all findings and diagnostic te sting as well as the need to follow-up with PCP for further evaluation and treatment or return to the ER if any new or worsening symptoms. Strict return precautions were also discussed at length. Patient voiced understanding and agreement with the plan. Patient is hemodynamically stable at the time of disposition. (RICHARD SUMMERS APRN) Course & Med Decision Making Did not see or evaluate patient. Did not discuss patient with LAND MEASURER. Agree with LAND MEASURER's work-up and disposition per note (DOROTHY HATFIELD MD) Dragon Disclaimer: Dragon Disclaimer: This electronic medical record was generated, in whole or in part, using a voice recognition dictation system. (RICHARD SUMMERS APRN) Departure Departure: Impression: Primary Impression: Atypical chest pain Disposition: HOME / SELF CARE / HOMELESS Condition: GOOD Referrals: LEIGHTON HANCOCK MD (PCP) Patient Instructions: Chest Pain (Nonspecific) Additional Instructions: You were seen in the emergency department today for chest pain. Your work-up in the ER was unremarkable. At this time, does not appear that you are experiencing acute coronary syndrome. However if you return home and you continue to have chest pain or it gets worse you need to return to the emergency department for reevaluation. Please follow-up with the aquacultural worker supervisor regarding your chronic chest pain. You can follow-up with [facility] cardiology group by calling [phone]. Please call them on Wednesday to set up a follow-up appointment. I would also advise you to contact Dr. Hancock regarding your ER visit, I would advise you to have a stress test. Continue to take your naproxen and Tylenol for your chest pain. Return to the emergency department if you develop worsening of your chest pain, shortness of breath, intractable nausea or vomiting, dizziness, palpitations, high fevers refractory to treatment or any new or worsening concerns. RICHARD SUMMERS APRN Sep 19, 2021 20:48 DOROTHY HATFIELD MD Sep 19, 2021 21:46
--- NOTE | 2021-09-19 20:52 | EKG ---
[address] [address] Test Date: 2021-09-19 Test Time: 20:37:30 Pat Name: ROSE GUTIERREZ Department: Room: Gender: F Dock Clerk: : 1980 Requested By: RICHARD SUMMERS Order Number: [id number] Reading MD: Garland Beltran Measurements Intervals [place] Rate: 69 P: 90 [place]: 164 QRS: 59 QRSD: 84 T: 56 QT: 372 QTc: 400 Interpretive Statements SINUS RHYTHM NORMAL ECG RI6.02 Compared to ECG 09/11/2021 01:32:12 No significant changes Electronically Signed On 09-20-2021 15:02:11 SENIOR BUSINESS DEVELOPMENT MANAGER by Garland Beltran
[2021-09-19] MEDS ORDERED: LIDO:MAALOX 1:1 20 ML SINGLE DOSE. PO ONE (21:00)
[2021-09-19 21:16] LABS: BASO # 0.1 x10^3/uL (0.0-0.2); BASO % 1 % (0-3); EOS % 1 % (0-3); HEMATOCRIT 30.1 % (36.0-47.0); HEMOGLOBIN 9.6 g/dL (12.0-15.5); LYMPH # 1.6 x10^3/uL (1.0-4.8); LYMPH % 32 % (24-48); MEAN CORPUSCULAR HEMOGLOBIN 28 pg (25-35); MEAN CORPUSCULAR HGB CONC 32 g/dL (31-37); MEAN CORPUSCULAR VOLUME 87 fL (79-100); MONO # 0.4 x10^3/uL (0.0-1.1); MONO % 8 % (0-9); NEUT # 2.9 x10^3uL (1.8-7.7); NEUT % 57 % (31-73); PLATELET COUNT 318 x10^3/uL (140-400); RED BLOOD COUNT 3.47 x10^6/uL (3.50-5.40); RED CELL DISTRIBUTION WIDTH 23.1 % (11.5-14.5); WHITE BLOOD COUNT 5.1 x10^3/uL (4.0-11.0)
[2021-09-19 21:21] LABS: BARBITURATES NEG (NEG); BENZODIAZEPINES NEG (NEG); CANNABINOIDS NEG (NEG); COCAINE NEG (NEG); METHADONE NEG (NEG); OPIATES NEG (NEG); PHENCYCLIDINE NEG (NEG)
--- NOTE | 2021-09-19 21:22 | RAD ---
AP chest HISTORY: Chest pain AP view was taken of the chest. Lungs are free of infiltrates. Heart is normal in size. There is no e ffusion. IMPRESSION: 1. No acute chest disease. Electronically signed by: Solitario Duran MD (09/19/2021 9:19 PM) [facility]
[2021-09-19 21:23] LABS: CALCIUM 8.2 mg/dL (8.5-10.1); CREATININE 0.9 mg/dL (0.6-1.0); GFR 83.5; POTASSIUM 4.1 mmol/L (3.5-5.1)
[2021-09-19 21:29] LABS: ALBUMIN 4.1 g/dL (3.4-5.0); ALBUMIN/GLOBULIN RATIO 1.2 (1.0-1.7); TOTAL BILIRUBIN 0.6 mg/dL (0.2-1.0); TOTAL PROTEIN 7.5 g/dL (6.4-8.2)
[2021-09-19 21:31] LABS: AMPHETAMINE/METHAMPHETAMINE NEG (NEG)
[2021-09-19 21:35] LABS: BILIRUBIN,URINE NEG (NEG); CLARITY,URINE CLEAR; COLOR,URINE YELLOW; GLUCOSE,URINE NEG (NEG)
[2021-09-19 21:36] LABS: BACTERIA,URINE 0 /HPF (0-FEW); NITRITE,URINE NEG (NEG); RBC,URINE 0 /HPF (0-2); SQUAMOUS EPITHELIAL CELL,UR OCC /LPF; UROBILINOGEN,URINE 0.2 mg/dL (0.2 mg/dL); WBC,URINE 0 /HPF (0-4)
[2021-09-19 22:10] VITALS: BP 113/77
[2021-09-19 22:11] LABS: ANISOCYTOSIS MOD; HYPOCHROMIA MOD; PLT ESTIMATE ADEQUATE (ADEQUATE); STOMATOCYTES OCC; TARGET CELLS FEW
[2021-09-19] MEDS ORDERED: KETOROLAC 15 MG/ML VIAL. ONE (22:13)
[2021-09-19] MEDS ORDERED: KETOROLAC 15 MG/ML VIAL. IVP ONE (23:00)
== END 2021-09-19 22:25 | disposition home or self-care (01) ==
LOC: ER 20:27
DX: R07.2 Precordial pain (principal); F41.9 Anxiety disorder, unspecified; E03.9 Hypothyroidism, unspecified; Z88.0 Allergy status to penicillin; Z88.5 Allergy status to narcotic agent; Z91.018 Allergy to other foods
CPT/HCPCS: 36415; 71045; 80053; 80307; 81001; 81025; 84484; 85025; 93005; 96374; 99285; J1885

== ENCOUNTER 2021-10-20 01:28 | Emergency (ER) | payer MEDICAID ==
[~2021-10-20] VITALS: Ht 182.9 cm; Wt 97.1 kg
[~2021-10-20 01:28] MED LIST changes: +ACET500T68 PO; +NAPR500T8 PO
--- NOTE | 2021-10-20 02:14 | PHYS DOC ---
Past History Past Medical History: Anxiety, Hypothyroid Additional Past Medical Histor: Thyroid ablation, COVID-19 Past Surgical History: , Tubal ligation Additional Past Surgical Histo: Hernia Repair Smoking: Non-smoker Alcohol Use: None Drug Use: None Adult General Chief Complaint Chief Complaint: HEADACHE HPI HPI Patient is a 41-year-old female with a past medical history of anxiety and endorsed significant alcohol use who presents with a chief complaint of headache. States that she drinks almost daily, drinking today earlier in the evening, several drinks. States if she does not she gets a headache and her head feels foggy. States that this feeling goes away when she drinks. Denies any other history of headaches before this over the last couple of months. Denies any recent traumas, travels, illnesses, fevers, changes in vision, neck pain, chest pain, shortness of breath, abdominal pain, nausea, vomiting, diarrhea. Denies any numbness/weakness/tingling. Review of Systems Review of Systems Review of systems otherwise unremarkable except noted in HPI Allergies Allergies Allergies Coded Allergies Type Severity Reaction Last Updated Verified Penicillins Allergy Unknown 09/19/21 Yes morphine Allergy Unknown 09/19/21 Yes mushroom Allergy Unknown 09/19/21 Yes Uncoded Allergies Type Severity Reaction Last Updated Verified retinol A Allergy Unknown 09/19/21 Physical Exam Physical Exam Constitutional: Well developed, well nourished, no acute distress, non-toxic appearance. [] HENT: Normocephalic, atraumatic, bilateral external ears normal, oropharynx moist, no oral exudates, nose normal. [] Eyes: PERRLA, EOMI, conjunctiva normal, no discharge. [] Neck: Normal range of motion, no tenderness, supple, no stridor. [] Cardiovascular:Heart rate regular rhythm, no murmur [] Lungs & Thorax: Bilateral breath sounds clear to auscultation [] Abdomen: Bowel sounds normal, soft, no tenderness, no masses, no pulsatile masses. [] Skin: Warm, dry, no erythema, no rash. [] Extremities: No tenderness, no cyanosis, no clubbing, ROM intact, no edema. [] Neurologic: Alert and oriented X 3, normal motor function, normal sensory function, able to sit, stand and walk without issue, cranial nerves intact no focal deficits noted. [] Psychologic: Affect normal, judgement normal, mood normal. [] Current Patient Data Vital Signs Vital Signs Date Time Temp Pulse Resp B/P (MAP) Pulse Ox O2 Delivery O2 Flow Rate FiO2 10/20/21 01:47 97.9 75 22 150/82 (104) 100 Room Air EKG EKG [] Radiology/Procedures Radiology/Procedures [] Heart Score C/O Chest Pain: No Risk Factors: Risk Factors: DM, Current or recent (<one month) smoker, HTN, HLP, family history of CAD, obesity. Risk Scores: Risk Factors: DM, Current or recent (<one month) smoker, HTN, HLP, family history of CAD, obesity. Course & Med Decision Making Course & Med Decision Making Patient is a 41-year-old female who presents with headache and probable alcohol use disorder Vital signs notable for mild hypertension. Physical exam noted above. Given Tylenol, ibuprofen and Benadryl Patient requesting CT of the head, CT of the head not concerning. Discussed management of headaches at home. Discussed ceasing alcohol use, eating appropriate nutritious diet and taking a multivitamin daily as well as staying hydrated. Advised to follow-up in the morning with her primary care physician to discuss the alcohol use, further evaluation and treatment and discussion of headaches Patient grateful, verbalized understanding and agreed with plan of discharge. Dragon Disclaimer Dragon Disclaimer This electronic medical record was generated, in whole or in part, using a voice recognition dictation system. Departure Departure: Impression: Primary Impression: Headache Additional Impressions: Anxiety about health Alcohol abuse Disposition: 01 HOME / SELF CARE / HOMELESS Condition: GOOD Referrals: LEIGHTON CHAO MD (PCP) Patient Instructions: Alcohol Problems, Anxiety and Panic Attacks, General Headache Without Cause Additional Instructions: Thank you for coming into the emergency department tonight and allowing us to take care of you. Please read the attached information carefully to go over things we discussed. You can use Tylenol, ibuprofen and Benadryl at home as we did here. Please be sure to eat at least 3 nutritious meals a day and take a multivitamin. Please be sure to drink plenty of fluids. Please try to cease drinking alcohol, in a stepwise fashion over the next couple of weeks not quitting all at once cold turkey. Please call your primary care physician in the morning as we discussed to update on ED visit, set up a follow-up and discuss these issues. Please come back with new or concerning symptoms as discussed. Problem Qualifiers DOROTHY HATFIELD MD Oct 20, 2021 02:14
--- NOTE | 2021-10-20 02:57 | RAD ---
CT HEAD/BRAIN WO Date: 10/20/2021 2:27 AM Clinical Indication: New onset LOVE's Comparison: 09/11/2021. Technique: 5 mm axial tomographic images were obtained of the head without contrast. These were view ed on brain and bone windows. One or more of the following dose reduction techniques were utilized: A utomated exposure control (AEC), Adjustment of mA and/or kV according to patient size, Use of iterati ve reconstruction technique such as ASiR, CT scan done according to ALARA and image gently/image harris ly Findings: The brain parenchyma is normal in attenuation. No intra- or extra-axial mass or fluid collection. No acute hemorrhage. The ventricles are normal in size, shape, and morphology. The zuluaga-white matter agustin ction is normal. The subarachnoid cisterns are patent. The visualized paranasal sinuses are normal. The visualized portions of the orbits and globes are no rmal. The mastoid air cells are clear. The typewriter assembler topogram shows no lytic lesion or fracture. Impression: No acute intracranial process. Electronically signed by: Florin Loving MD (10/20/2021 2:55 AM) [facility]
[2021-10-20] MEDS ORDERED: ACETAMINOPHEN 500 MG TABLET PO ONE (03:00)
[2021-10-20] MEDS ORDERED: KETOROLAC 30 MG/ML VIAL. IM ONE (03:00)
[2021-10-20] MEDS ORDERED: diphenhydrAMINE HCL 25 MG CAPSULE PO ONE (03:00)
[2021-10-20 03:08] VITALS: BP 141/84
== END 2021-10-20 03:11 | disposition home or self-care (01) ==
LOC: ER 01:28
DX: R51.9 Headache, unspecified (principal); F41.9 Anxiety disorder, unspecified; F10.10 Alcohol abuse, uncomplicated; Z88.0 Allergy status to penicillin; Z88.6 Allergy status to analgesic agent; Z88.8 Allergy status to other drugs, medicaments and biological substances; Z98.51 Tubal ligation status
CPT/HCPCS: 70450; 81025; 96372; 99284; J1885; Q0163